=== PATIENT | male | born 1980 | race Caucasian/White ===

== ENCOUNTER 2020-01-28 00:52 | Emergency (ER) | payer SELFPAY ==
[2020-01-28 01:04] VITALS: BP 148/103; PULSE 85; RESP 18; TEMP 36.4; O2SAT 99; BMI 24.3
--- NOTE | 2020-01-28 01:14 | ED_ITS ---
HPI - Eye Problem General: Chief complaint: Eye Problems Stated complaint: hurts to open eyes Time Seen by Provider: 01/28/20 01:04 History of Present Illness: HPI Narrative: Patient is a 39-year-old male who comes to the ED with bilateral eye pain. 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 He now is having intense eye pain and it hurts to open his eyes. Denies any foreign body. Associated symptoms: Denies fever(s), headache(s), nausea, neck pain or vomiting Review of Systems Const: Denies: fever, chills or fatigue Eyes: Reports: blurry vision, eye discomfort and eye redness; Denies: change in vision ENMT: Denies: throat pain, painful swallowing, nasal discharge or nasal congestion Card: Denies: chest pain, palpitations, edema, swelling of feet/ankles, shortness of breath on exertion or shortness of breath when lying down Resp: Denies: shortness of breath, productive cough or non-productive cough GI: Denies: abdominal pain, nausea, vomiting, diarrhea, constipation or blood in stool : Denies: flank pain, difficulty urinating, painful urination or blood in urine Musc: Denies: neck pain, back pain or extremity swelling Skin/Breast: Denies: rash or new lesion Neuro: Denies: headache, numbness in extremities or weakness in extremities PFSH ED PFSH: Social History Smoking and tobacco status: former smoker Physical Exam Narrative: EXAM NARRATIVE: Patient is a 39-year-old male who appears in some discomfort when I entered the room. Const: COMMON NORMALS: oriented x3 and alert GENERAL APPEARANCE: cooperative HENMT: COMMON NORMALS: normocephalic HEAD & SCALP: normocephalic MOUTH: oral and palatal mucosa normal THROAT: posterior oropharynx normal and uvula midline Eye: COMMON NORMALS: PERRL and EOMs intact bilaterally EYELID: eyelids normal CONJUNCTIVA: Yes conjunctiva abnormal positive bilateral conjunctival injection diffuse SCLERA: sclerae normal CORNEA: Yes corneas normal and fluorescein used (no abrasions or scratches seen.) PUPIL: Yes PERRL SLIT LAMP EXAM: Yes slit lamp exam performed with fluorescein and Yes conjunctiva/sclera Conjunctiva/sclera details: diffuse conjunctiva injection OTHER: No foreign body seen on exam of both eyes. Neck/C-Spine: COMMON NORMALS: supple GENERAL: Yes normal visual inspection Resp: COMMON NORMALS: normal respiratory effort, no retractions, no use of accessory muscles and clear to auscultation bilaterally AUSCULTATION: clear to auscultation bilaterally Cardio: COMMON NORMALS: regular rate, regular rhythm, S1 normal heart sound, S2 normal heart sound, no gallops, no clicks, no murmurs and peripheral pulses 2+ throughout RATE: regular rate RHYTHM: regular rhythm HEART SOUNDS: S1 normal and S2 normal PERIPHERAL PULSES: pulses 2+ throughout GI: COMMON NORMALS: normal to inspection, nondistended, normoactive bowel sounds, soft to palpation, non-tender and no masses PALPATION: Yes soft : COMMON NORMALS: Yes no CVA tenderness BLADDER/KIDNEY EXAM: Yes no CVA tenderness Back/Pelvis: COMMON NORMALS: no CVA tenderness Extremity: COMMON NORMALS: normal to inspection Neuro: COMMON NORMALS: oriented x3 and moves all extremities SENSORIUM/ORIENTATION: Yes alert Skin: COMMON NORMALS: no rashes or lesions noted GENERAL SKIN EXAM: no rashes or lesions noted and dry skin Course Vital Signs: Vital signs: Vital Signs Temperature 97.6 F 01/28/20 01:04 Pulse Rate 85 01/28/20 01:04 Respiratory Rate 16 01/28/20 02:31 Blood Pressure 150/100 01/28/20 02:31 Pulse Oximetry 99 01/28/20 01:04 MDM - Eye Problem MDM Narrative: Medical decision making narrative: Patient is a 39-year-old male who comes into the ED with bilateral eye pain. 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 Patient diagnosed with Welders flash in both eyes and given a prescription for erythromycin eye ointment. Patient was told to return to the ED immediately within 2 days if symptoms do not improve. I stressed with patient that he needs to be reevaluated and seen by either PCP or return to the ED no matter what within 3 days. He was told to rest advised him to take ibuprofen for pain. Patient understood and agreed with plan. Discharge Plan Discharge Patient Disposition: Home, Self-Care Clinical Impression: Welders' flash Qualifiers: Laterality: bilateral Qualified Code(s): H16.133 - Photokeratitis, bilateral Condition: Stable Prescriptions: New erythromycin 5 mg/gram (0.5 %) ointment 1 applic ophthalmic (eye) Q6H Qty: 3.5 RF: 0 Discharge Orders: Discharge Order (Routine); Ordered 01/28/20 Ordered By: Edwin Weiss Discharge Diet: Regular Discharge Activity: Limit activity as instructed Patient Instructions: Erythromycin (Into the eye), Corneal Flash [place] (ED) Activity Restrictions/Additional Instructions: Follow-up with your PCP or return to ED in 2 to 3 days for reevaluation. Use topical antibiotic eye ointment as prescribed. Keep eyes closed and wear eye patches if possible to allow for eyes to rest and heal for the next 2-3 days. If after 2 days of using eye ointment and you do not feel any improvement return to ED for reevaluation immediately. Ibuprofen or Tylenol as needed for pain. Discharge Date/Time: 01/28/20 02:32 Coding Level of Care Code ED Packaging Materials Inspector for April Fwleigh Exam Comprehensive
[2020-01-28] MEDS: eye irrigation 30 mL Btl EYE-BOTH (01:54)
[2020-01-28] MEDS: HYDROcodone-acetaminophen 7.5-325 mg Tablet 1 TAB PO ×2 (01:54→02:28)
[2020-01-28] MEDS: erythromycin Op Oint 1 gm 1 APPLIC EYE-BOTH (01:54)
[2020-01-28] MEDS: fluorescein 1 mg Strip EYE-BOTH (01:54)
[2020-01-28] MEDS: tetracaine 0.5% Op Soln 4 mL Btl 1 DROP EYE-BOTH (01:56)
[2020-01-28 02:31] VITALS: BP 150/100; RESP 16
== END 2020-01-28 02:32 | disposition home or self-care (01) ==
PROVIDERS: Emergency Provider Physician Assistant
DX: H16.133 Photokeratitis, bilateral (principal); W89.8XXA Exposure to other man-made visible and ultraviolet light, initial encounter; Z87.891 Personal history of nicotine dependence
CPT/HCPCS: 12345; 99281; 99283

== ENCOUNTER 2020-06-22 22:22 | Emergency (ER) | payer SELFPAY ==
[2020-06-22 22:24] VITALS: BP 160/105; PULSE 87; RESP 18; TEMP 36.3; O2SAT 100; BMI 25.0
[2020-06-22 22:27] VITALS: RESP 18
--- NOTE | 2020-06-22 22:31 | XR_ITS ---
WS: [id number] RIGHT HAND: 3 VIEW(S) TECHNIQUE: PA, oblique and lateral. HISTORY: right hand injury COMPARISON: 04/18/2006 Suspect nondisplaced fracture. Cortical irregularity involving the terminal tuft of the third finger is probably not related to the recent trauma. Extensive soft tissue injury and edema surrounding the second finger. No displacement. No foreign body. XR/XR hand RT min 3V* [id number] IMPRESSION: 1. Nondisplaced fracture terminal tuft second finger. 2. Soft tissue edema surrounding the second finger.
--- NOTE | 2020-06-22 22:32 | W.ED.EXTPRO ---
HPI - Extremity Problem General: Chief complaint: Wound/Laceration Stated complaint: finger lac Time Seen by Provider: 06/22/20 22:30 History of Present Illness: HPI Narrative: Patient is a 39-year-old male who comes to the ED with finger laceration. Injury occurred just prior to arrival. Patient said while he was building a tree house a panel fell down and struck patient's right index finger causing a laceration. Patient says he has not had an updated tetanus shot. Associated symptoms: Deny chest pain, fever(s) or rash Review of Systems Const: Denies: fever(s), chills or fatigue Eyes: Denies: change in vision or eye discomfort ENMT: Denies: throat pain, odynophagia, nasal discharge or nasal congestion Card: Denies: chest pain, palpitations, edema, swelling of feet/ankles, dyspnea on exertion or orthopnea Resp: Denies: dyspnea, productive cough or non-productive cough GI: Denies: abdominal pain, nausea, vomiting, diarrhea, constipation or hematochezia : Denies: flank pain, difficulty urinating, dysuria or hematuria Musc: Denies: neck pain, back pain or extremity swelling Skin/Breast: Reports: new lesions (laceration on left index finger); Denies: rash Neuro: Denies: headache(s), numbness in extremities or weakness in extremities PFSH ED PFSH: Social History Smoking and tobacco status: former smoker Physical Exam Const: COMMON NORMALS: patient oriented x3, healthy appearing and alert GENERAL APPEARANCE: cooperative and comfortable HENMT: COMMON NORMALS: normocephalic HEAD & SCALP: normocephalic MOUTH: Normal oral and palatal mucosa present THROAT: posterior oropharynx normal and uvula midline Neck/C-Spine: COMMON NORMALS: supple GENERAL: Yes normal visual inspection Resp: COMMON NORMALS: normal respiratory effort, No retractions, No use of accessory muscles and clear to auscultation bilaterally AUSCULTATION: clear to auscultation bilaterally Cardio: COMMON NORMALS: regular rate, regular rhythm, S1 normal heart sound present, S2 normal heart sound present, No gallops present (Cardio), No clicks present (Cardio), No murmurs present (Cardio) and Peripheral pulses 2+ throughout RATE: regular rate RHYTHM: regular rhythm HEART SOUNDS: S1 normal heart sound present and S2 normal heart sound present PERIPHERAL PULSES: Peripheral pulses 2+ throughout GI: COMMON NORMALS: Normal to inspection, nondistended, normoactive bowel sounds present, Soft to palpation, non-tender and no masses PALPATION: Yes Soft to palpation : COMMON NORMALS: Yes no CVA tenderness BLADDER/KIDNEY EXAM: Yes no CVA tenderness Back/Pelvis: COMMON NORMALS: no CVA tenderness Extremity: NARRATIVE EXTREMITY EXAM: Patient has a superficial 2 cm laceration on right index finger. Neuro: COMMON NORMALS: patient oriented x3 and moves all extremities SENSORIUM/ORIENTATION: Yes alert Skin: TRAUMA: laceration linear (Superficial 2 cm linear laceration to right index finger.), superficial, motor nerve function intact and sensation intact; not actively bleeding, no pulsatile bleeding, no foreign bodies present and not contaminated Procedures Laceration Laceration 1: Site: hand Side (If applicable): right Size (cm): 2 Description: linear and clean Depth: simple, single layer Local Anesthetic: lidocaine 2% Amount of anesthesia used (mL): 10 Pre-repair: irrigated extensively (With normal saline ) Skin layer closed with: nylon Size (cm): 4-0 Number of sutures: 11 Technique: simple, interrupted Nerve Block Nerve Block 1: Time out performed: Yes Local Anesthetic: lidocaine 2% Amount of anesthesia used (mL): 10 Side: left Nerve Blocks: digital (2 digit) Procedure Successful: Yes Patient Tolerated Procedure: well Complications: none Course Vital Signs: Vital signs: Vital Signs Temperature 97.3 F L 06/22/20 22:24 Pulse Rate 87 06/22/20 22:24 Respiratory Rate 18 06/22/20 22:27 Blood Pressure 160/105 06/22/20 22:24 Pulse Oximetry 100 06/22/20 22:24 MDM - Extremity (Nontraumatic) MDM Narrative: Medical decision making narrative: Patient is a 39-year-old male comes the ED with a laceration to right index finger. X-ray showed no acute fractures or findings. Digital block was performed and 11 sutures were placed to close laceration. Patient was put on cephalexin and told how to care for sutures. Have sutures removed in 10 days. Patient understood and agree with plan. Imaging Data^: Xray Ortho: Attestation: I personally reviewed and interpreted this imaging study as follows: My impression: Right hand x-ray showed no acute fractures or findings. Discharge Plan Discharge Patient Disposition: Home Clinical Impression: Laceration Condition: Stable Prescriptions: New cephalexin 500 mg capsule 500 mg PO TID 5 Days Qty: 15 RF: 0 No Action erythromycin 5 mg/gram (0.5 %) ointment 1 applic ophthalmic (eye) Q6H Qty: 3.5 RF: 0 Discharge Orders: Discharge Order (Routine); Ordered 06/23/20 Ordered By: Edwin Weiss Discharge Diet: Regular Discharge Activity: Limit activity as instructed Patient Instructions: Suture Care (ED), Finger Laceration (ED) Activity Restrictions/Additional Instructions: Take full course of antibiotics as prescribed. Keep laceration site clean and dry for the next 48 hours. Wear finger splint to keep finger straight to allow skin to heal. Then after that you can clean and re-bandage daily. Watch for signs of infection such as redness, warmth, increased tenderness and puslike drainage. If you see the signs of infection return to the ED, urgent care or PCP for reevaluation. call your PCP to schedule a follow-up appointment for reevaluation and suture removal in about 10 days. Continue taking all home meds. Follow discharge plans as discussed. You can return to the ED if symptoms worsen. Coding Level of Care Code ED Programmer Engineering [employer] Scientific for April Deleon Exam Comprehensive
[2020-06-22] MEDS: HYDROcodone-acetaminophen 7.5-325 mg Tablet 1 TAB PO (23:40)
[2020-06-22] MEDS: cephALEXin 500 mg Capsule PO (23:40)
[2020-06-22] MEDS: lidocaine 2% INJ 20 mL INJECTION (23:41)
[2020-06-23] MEDS: tetanus-diphtheria tox (adult) 0.5 mL SDV IM (00:33)
[2020-06-23 00:40] VITALS: BP 149/104; RESP 16
[2020-06-23 00:52] VITALS: BP 149/104; RESP 16
== END 2020-06-23 00:55 | disposition home or self-care (01) ==
PROVIDERS: Emergency Provider Physician Assistant
DX: S61.210A Laceration without foreign body of right index finger without damage to nail, initial encounter (principal); W20.8XXA Other cause of strike by thrown, projected or falling object, initial encounter; Z87.891 Personal history of nicotine dependence; Z23 Encounter for immunization
CPT/HCPCS: 12001; 12345; 29130; 73130; 90471; 90714; 99281; 99283

== ENCOUNTER 2022-09-17 17:14 | Observation (INO) | payer MEDICAID, SELFPAY ==
[2022-09-17 17:20] VITALS: BP 158/103; PULSE 78; RESP 16; TEMP 35.6; O2SAT 100; BMI 24.5
--- NOTE | 2022-09-17 17:29 | ECG_ITS ---
[facility] Test Date: 2022-09-17 Pat Name: Albert Marsh Department: Room: Gender: Male Medicare Coordinator: : 1980 Requested By: Mustapha Sanchez Order Number: [id number] Nancy MD: Jenna Palmer M.D. Measurements Intervals [place] Rate: 72 P: 80 WI: 161 QRS: 31 QRSD: 94 T: 44 QT: 436 QTc: 478 Interpretive Statements SINUS RHYTHM No previous ECG available for comparison Electronically Signed On 09-18-2022 10:57:49 ASSOCIATE GENETICS PROFESSOR by Jenna Palmer M.D. [id number]
--- NOTE | 2022-09-17 17:29 | CTR_ITS ---
PROCEDURE INFORMATION: Exam: CT Head Without Contrast Exam date and time: 09/17/2022 6:02 PM Age: 41 years old Clinical indication: Altered mental status/memory loss; Additional info: Altered mental status recent trauma TECHNIQUE: Imaging protocol: Computed tomography of the head without contrast. Radiation optimization: All CT scans at this facility use at least one of these dose optimization techniques: automated exposure control; mA and/or kV adjustment per patient size (includes targeted exams where dose is matched to clinical indication); or iterative reconstruction. COMPARISON: CT Head wo IV contrast 07/10/2014 11:23 PM RADIATION DOSE METRICS: Total DLP (mGy-cm): 1349.18 FINDINGS: Limitations: Study is somewhat limited by patient motion. Brain: Normal. No hemorrhage. Unremarkable white matter. No mass effect. Cerebral ventricles: No ventriculomegaly. Paranasal sinuses: There is some partial opacification of ethmoid air cells. Mastoid air cells: Visualized mastoid air cells are well aerated. Bones/joints: Unremarkable. No acute fracture. Soft tissues: Unremarkable. CT/CT head wo con* [id number] IMPRESSION: Mild sinus disease. No acute intracranial finding.
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
[2022-09-17 18:07] LABS: Add Urine Microscopic? NO; Charge for UA Resulting for Rev
[2022-09-17 18:10] LABS: Bilirubin Urine Neg (Negative); Blood Urine Neg (Negative); Glucose Urine UA 4+ (Normal); Ketones Urine 1+ (Negative); Leukocyte Esterase Urine Negative (Negative); Nitrate Urine Negative (Negative); Protein Urine Neg (Negative); Specific Gravity, Urine 1.005 (1.005-1.030); Urine Appearance Clear (CLEAR); Urine Color Yellow (Yellow); Urobilinogen Urine Neg (Negative); pH Urine 6 (5-7)
[2022-09-17 18:15] LABS: Basophils % 0.4 %; Eosinophils % 0.7 %; Hematocrit 52.1 % (42.0-52.0); Hemoglobin 15.3 g/dL (11.7-16.6); Lymphocytes # 0.8 10^3/uL (0.8-4.8); Lymphocytes % 29.6 %; Mean Corpuscular HGB Conc 29.4 g/dL (30.0-36.0); Mean Corpuscular Hemoglobin 28.5 pg (28.0-34.0); Mean Corpuscular Volume 97.2 fl (80-94); Mean Platelet Volume 11.3 fL (7.4-10.4); Monocytes # 0.2 10^3/uL (0.2-0.9); Monocytes % 8.7 %; Neutrophils # 1.66 10^3/uL (1.8-7.7); Neutrophils % 59.9 %; Nucleated Red Blood Cells % 0 %; Platelet Count 183 10^3/cmm (130-400); Red Blood Count 5.36 10^6/uL (4.1-5.3); White Blood Count 2.8 10^3/uL (4.0-10.0)
[2022-09-17 18:18] LABS: Amphetamines Screen Urine Positive (Negative); Barbiturates Screen Urine Negative (Negative); Benzodiazepines Screen Urine Negative (Negative); Cocaine Screen Urine Negative (Negative); Opiate Screen Urine Negative (Negative); PCP Screen Urine Negative (Negative); THC Screen Urine Negative (Negative)
[2022-09-17 18:31] LABS: Alanine Aminotransferase 20 U/L (0-41); Albumin Level 4.3 g/dL (3.5-5.2); Alkaline Phosphatase 232 U/L (40-130); Anion Gap 17.2 (5-19); Aspartate Amino Transferase 17 U/L (0-40); Blood Urea Nitrogen 30 mg/dL (6-20); Calcium 9.7 mg/dL (8.5-10.5); Carbon Dioxide 28 mmol/L (22-29); Chloride 83 mmol/L (98-107); Glomerular Filtration Rate 66.7 mL/min (90-130); Potassium 5.2 mmol/L (3.5-5.1); Sodium 123 mmol/L (136-145); Total Protein 8.3 g/dL (6.6-8.7)
[2022-09-17 18:35] LABS: Acetaminophen < 5.0 ug/mL (10-30); Alcohol Level < 10 mg/dL (0-10); Salicylate < 0.3 mg/dL (3-10)
[2022-09-17 18:36] LABS: Ketone (Acetest) Serum Negative (Negative)
[2022-09-17 18:39] LABS: Osmolality Calculated 338 mOsm/kg (285-295)
[2022-09-17 18:41] LABS: Glucose 1463 mg/dL (65-115)
[2022-09-17 19:30] VITALS: BP 165/107; PULSE 90; RESP 14; O2SAT 94
[2022-09-17] MEDS: metformin 500 mg Tablet 1000 MG PO (19:38)
[2022-09-17] MEDS: sodium chloride 0.9% 1,000 ML 999 ML IV ×2 (19:48→20:13)
[2022-09-17] MEDS: insulin regular-human 100 units/1 mL 12 UNIT IVP (19:49)
[2022-09-17 19:57] LABS: HIV 1 & 2 Antibody Non-Reactive (Non-Reactiv); HIV 1 & 2 Antigen Non-Reactive (Non-Reactiv)
[2022-09-17 20:36] LABS: Glucose Point of Care > 600 mg/dL (70-110)
[2022-09-17] MEDS: insulin regular-human 250 UNIT in sodium chloride 0.9% 250 ML 28.48 UNIT IV (20:51)
[2022-09-17 21:00] VITALS: BP 162/97; PULSE 82; RESP 14; O2SAT 96
[2022-09-17 21:21] LABS: Estmated Average Glucose 260; Hemoglobin A1C 10.7 % (4.0-6.0)
--- NOTE | 2022-09-17 21:22 | PM.HP ---
Providers/Chief Complaint Admitting Physician: Liss Wilson MD Chief Complaint: abd pain History of Present Illness Albert Marsh is a 41 year old male without significant past medical history with chief complaint of blurry vision. Patient stating that he start experiencing polyphagia, polyuria, dry mucous membranes, weakness, fatigue and lethargy for last few weeks today he decided to come to the hospital because of worsening of blurry vision. He does not have any history of diabetes, CVA [place] CHF. Patient is endorsing flulike symptoms for last couple of days he has been noticing some fever, sneezing and dry cough. He is not vaccinated for COVID-19 and he does not want to get vaccine as well. Drug screen positive for methamphetamine COVID PCR requested [place] IV fluids to be given patient is getting admitted to the ICU patient was elected to get admitted however later agreed Review of Systems Const: Reports: fever(s) and chills Eyes: Denies: change in vision ENMT: Denies: throat pain Card: Denies: chest pain Resp: Denies: dyspnea GI: Denies: abdominal pain : Denies: flank pain Musc: Denies: neck pain Skin/Breast: Denies: rash Neuro: Reports: headache(s) Psych: Denies: anxiety Endo: Denies: polyuria [place]/Lymph: Denies: easy bruising All/Imm: Denies: urticaria Medications/Allergies Home Medications Medication Instructions Recorded Confirmed Last Taken Type albuterol sulfate 90 mcg/actuation 2 puff inhalation Q6H PRN 08/29/20 08/29/20 Unknown Rx aerosol inhaler shortness of breath or wheezing #8.5 grams azithromycin 250 mg tablet See Rx Instructions PO .COMPLEX #6 08/29/20 08/29/20 Unknown Rx tabs prednisone 10 mg tablet 30 mg PO DAILY 5 days #15 tabs 08/29/20 08/29/20 Unknown Rx Allergies Allergy/AdvReac Type Severity Reaction Status Date / Time No Known Allergies Allergy Verified 09/17/22 19:37 PFSH Acute PFSH: Medical History No pertinent past medical history Surgical History No pertinent past surgical history Social History Smoking and tobacco status: former smoker Alcohol intake: current Substance/Drug Use: current Substance/Drug use frequency: Special occassions/opportunity only Substance/Drug use type: Methamphetamine Vitals/I&O/Wt Last Vital Signs Temp 96.0 F L 09/17/22 17:20 Pulse 82 09/17/22 21:00 Resp 14 09/17/22 21:00 BP 162/97 09/17/22 21:00 Pulse Ox 96 09/17/22 21:00 O2 Del Method 09/17/22 21:00 09/17/22 09/17/22 09/17/22 06:59 14:59 22:59 Intake Total 1416.25 / 1416.25 Balance 1416.25 / 1416.25 Weight last 48 hrs Weight 71.214 kg Physical Exam Narrative: Patient is awake and alert Dry mucous membranes Euvolemic Awake and alert Nonfocal neuro exam S1, S2 Abdomen soft Anxious. Does not make eye contact Dry cough Sneezing a lot Doing well on room air Data 09/17/22 18:00 09/17/22 18:00 A&P Assessment and plan (1) Acute hyperglycemia: (2) Acute dehydration: Plan Hyperglycemia without ketosis No signs of DKA No signs of acidosis Suffering from cold symptoms requested COVID PCR Start patient on insulin drip after liberal IV fluid hydration Stop insulin drip once blood glucose below 200 mg/dL, hemoglobin A1c is 10 He will need Lantus 20 units along schedule Premeal short acting insulin Add metformin at the time of discharge 1000 mg daily Have him follow-up with Dr. Serrato outpatient Patient has quit smoking in the past N.p.o. for now start consistent carb diet once blood glucose below 200 Full code DVT prophylaxis on board Hyponatremia is secondary to hyperglycemia His potassium will get better with use of IV insulin Requested TSH, drug screen positive for methamphetamine Attestations Medical Necessity Statement*: Anticipating discharge within 48 hours need insulin for hyperglycemia Time Spent in Patient Care: 40 Coding Level of Care Code Acute Entertainment Dancer for April Deleon Diagnoses Acute hyperglycemia R73.9 Acute dehydration E86.0
[2022-09-17 21:25] LABS: Hepatitis A Antibody IgM Non-Reactive (Nonreactive); Hepatitis B Core IgM Non-Reactive (Nonreactive); Hepatitis B Surface Antigen Non-Reactive (Nonreactive); Hepatitis C Virus Antibody Non-Reactive (Nonreactive)
[2022-09-17 21:43] LABS: Glucose Point of Care > 600 mg/dL (70-110)
[2022-09-17 22:00] VITALS: BP 162/97; PULSE 82; RESP 14; O2SAT 96
[2022-09-17 22:08] VITALS: BMI 24.3
[2022-09-17 22:25] LABS: Procalcitonin 0.17 ng/mL (0-0.5)
[2022-09-17] MEDS: lactated ringers 1,000 ML 999 ML IV (22:47)
[2022-09-17] MEDS: sodium chlor 0.9% + KCl 20 mEq 20 MEQ/1,000 ML BAG 100 MEQ IV (22:47)
[2022-09-17 22:53] LABS: Adenovirus Not Detected (NOT DETECT); Chlamydia Pneumoniae Not Detected (NOT DETECT); Coronavirus 229E,HKU1,NL63,OC4 Not Detected (NOT DETECT); Human Metapneumovirus Not Detected (NOT DETECT); Human Rhinovirus/Enterovirus Not Detected (NOT DETECT); Influenza A Detected (NOT DETECT); Influenza A H1 Not Detected (NOT DETECT); Influenza A H1-2009 Detected (NOT DETECT); Influenza A H3 Not Detected (NOT DETECT); Influenza B Not Detected (NOT DETECT); Mycoplasma Pneumoniae Not Detected (NOT DETECT); Parainfluenza Virus Type 1 Not Detected (NOT DETECT); Parainfluenza Virus Type 2 Not Detected (NOT DETECT); Parainfluenza Virus Type 3 Not Detected (NOT DETECT); Parainfluenza Virus Type 4 Not Detected (NOT DETECT); Respiratory Syncytial Virus A Not Detected (NOT DETECT); Respiratory Syncytial Virus B Not Detected (NOT DETECT); SARS-COV-2 Not Detected (NOT DETECT)
[2022-09-17 22:54] LABS: Glucose 495 mg/dL (65-115); Thyroid Stimulating Hormone 0.78 uIU/mL (0.27-4.20)
[2022-09-17 23:31] LABS: Glucose Point of Care 357 mg/dL (70-110)
[2022-09-18] MEDS: sodium chloride 0.9% 1,000 ML 100 ML IV ×2 (00:02→11:14)
[2022-09-18] MEDS: insulin glargine 100 units/1 mL 20 UNIT SUBCUT (00:02)
[2022-09-18 00:26] LABS: Anion Gap 14.2 (5-19); Blood Urea Nitrogen 21 mg/dL (6-20); Calcium 9.1 mg/dL (8.5-10.5); Carbon Dioxide 23 mmol/L (22-29); Chloride 105 mmol/L (98-107); Glomerular Filtration Rate 124.3 mL/min (90-130); Glucose 185 mg/dL (65-115); Osmolality Calculated 296 mOsm/kg (285-295); Potassium 3.2 mmol/L (3.5-5.1); Sodium 139 mmol/L (136-145)
[2022-09-18 00:57] LABS: Glucose Point of Care 205 mg/dL (70-110)
[2022-09-18] MEDS: insulin lispro 100 unit/1 mL 6 UNIT SUBCUT (01:01)
[2022-09-18] MEDS: potassium chloride ER 20 mEq Tablet 40 MEQ PO (01:01)
[2022-09-18 01:48] VITALS: PULSE 83; RESP 16; O2SAT 96
[2022-09-18 03:29] LABS: Glucose Point of Care 225 mg/dL (70-110)
[2022-09-18 04:53] LABS: Basophils % 0.5 %; Eosinophils # 0.1 10^3/uL (0.0-0.8); Eosinophils % 3.3 %; Hematocrit 37.9 % (42.0-52.0); Hemoglobin 13.1 g/dL (11.7-16.6); Lymphocytes # 2.1 10^3/uL (0.8-4.8); Lymphocytes % 49.1 %; Mean Corpuscular HGB Conc 34.6 g/dL (30.0-36.0); Mean Corpuscular Hemoglobin 28.4 pg (28.0-34.0); Mean Platelet Volume 10.9 fL (7.4-10.4); Monocytes # 0.4 10^3/uL (0.2-0.9); Monocytes % 9.4 %; Neutrophils # 1.59 10^3/uL (1.8-7.7); Neutrophils % 37.5 %; Nucleated Red Blood Cells % 0 %; Platelet Count 164 10^3/cmm (130-400); Red Blood Count 4.62 10^6/uL (4.1-5.3); Red Cell Distribution Width 11.8 % (12.1-15.1); White Blood Count 4.2 10^3/uL (4.0-10.0)
[2022-09-18 05:16] LABS: Anion Gap 10.6 (5-19); Blood Urea Nitrogen 17 mg/dL (6-20); C Reactive Protein 15.2 mg/L (0.0-4.9); Calcium 9.2 mg/dL (8.5-10.5); Carbon Dioxide 26 mmol/L (22-29); Chloride 107 mmol/L (98-107); Glomerular Filtration Rate 124.3 mL/min (90-130); Glucose 203 mg/dL (65-115); Magnesium 1.9 mg/dL (1.7-2.3); Osmolality Calculated 297 mOsm/kg (285-295); Potassium 3.6 mmol/L (3.5-5.1); Sodium 140 mmol/L (136-145)
[2022-09-18] MEDS: oseltamivir phosphate 75 mg Capsule PO (08:17)
[2022-09-18 08:23] LABS: Anion Gap 13.8 (5-19); Blood Urea Nitrogen 16 mg/dL (6-20); Calcium 8.9 mg/dL (8.5-10.5); Carbon Dioxide 26 mmol/L (22-29); Chloride 107 mmol/L (98-107); Glomerular Filtration Rate 124.3 mL/min (90-130); Glucose 124 mg/dL (65-115); Osmolality Calculated 299 mOsm/kg (285-295); Potassium 3.8 mmol/L (3.5-5.1); Sodium 143 mmol/L (136-145)
[2022-09-18 08:23] LABS: Glucose Point of Care 117 mg/dL (70-110)
[2022-09-18 11:18] VITALS: PULSE 80; RESP 18; O2SAT 94
--- NOTE | 2022-09-18 11:33 | P.DS_ITS ---
Discharge Providers Date of Admission: 09/17/22 21:14 Date of Discharge: September 18, 2022 Attending Provider at Admission: Liss Wilson MD Attending Provider at Discharge: Nicole Dunlap MD Diagnoses at Discharge Discharge Diagnosis (1) Acute hyperglycemia: Status: Acute (2) Acute dehydration: Status: Resolved Reason for Visit Reason for Visit: abd pain Brief History: Albert Marsh is a 41 year old male without significant past medical history with chief complaint of blurry vision.? Patient stating that he start experiencing polyphagia, polyuria, dry mucous membranes, weakness, fatigue and lethargy for last few weeks today he decided to come to the hospital because of worsening of blurry vision.? He does not have any history of diabetes, CVA [place] CHF.? Patient is endorsing flulike symptoms for last couple of days he has been noticing some fever, sneezing and dry cough. He is not vaccinated for COVID-19 and he does not want to get vaccine as well. Drug screen positive for methamphetamine COVID PCR requested [place] IV fluids to be given patient is getting admitted to the ICU patient was elected to get admitted however later agreed Hospital Course Hospital Course Admitted for blood sugar of 1400. Placed on insulin drip. Discharged home on Lantus 20 units daily along with metformin. He was given endocrinology follow- up at discharge. 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 He was given instructions for diabetic diet and counseled and given written instructions for blood sugar management. Blood glucose monitoring was also prescribed. Physical Exam Narrative: Patient is awake and alert Euvolemic Awake and alert Nonfocal neuro exam S1, S2 Abdomen soft Doing well on room air Discharge Data Studies Completed and Pending Completed Studies During Hospitalization Category Date Time Status CT head wo con* [id number] Stat Cat Scan 09/17/22 17:29 Completed Pending at discharge Category Date Time Status Basic Metabolic Panel Q4H Lab 09/18/22 12:00 Ordered Radiology Impressions Head CT 09/17/22 17:29 IMPRESSION: Mild sinus disease. No acute intracranial finding. Laboratory Results WBC 4.2 10^3/uL (4.0-10.0) 09/18/22 04:19 RBC 4.62 10^6/uL (4.1-5.3) 09/18/22 04:19 Hgb 13.1 g/dL (11.7-16.6) 09/18/22 04:19 Hct 37.9 % (42.0-52.0) L 09/18/22 04:19 MCV 82.0 fl (80-94) D 09/18/22 04:19 MCH 28.4 pg (28.0-34.0) 09/18/22 04:19 MCHC 34.6 g/dL (30.0-36.0) D 09/18/22 04:19 RDW 11.8 % (12.1-15.1) L 09/18/22 04:19 Plt Count 164 10^3/cmm (130-400) 09/18/22 04:19 MPV 10.9 fL (7.4-10.4) H 09/18/22 04:19 Neut % (Auto) 37.5 % 09/18/22 04:19 Lymph % (Auto) 49.1 % 09/18/22 04:19 [place] % (Auto) 9.4 % 09/18/22 04:19 Eos % (Auto) 3.3 % 09/18/22 04:19 Baso % (Auto) 0.5 % 09/18/22 04:19 Neut # (Auto) 1.59 10^3/uL (1.8-7.7) L 09/18/22 04:19 Lymph # (Auto) 2.1 10^3/uL (0.8-4.8) 09/18/22 04:19 [place] # (Auto) 0.4 10^3/uL (0.2-0.9) 09/18/22 04:19 Eos # (Auto) 0.1 10^3/uL (0.0-0.8) 09/18/22 04:19 Baso # (Auto) 0.0 10^3/uL (0.0-0.1) 09/18/22 04:19 Nucleated RBC % (auto) 0 % 09/18/22 04:19 Nucleated RBCs # 0.0 /100WBC 09/18/22 04:19 Sodium 143 mmol/L (136-145) 09/18/22 07:55 Potassium 3.8 mmol/L (3.5-5.1) 09/18/22 07:55 Chloride 107 mmol/L (98-107) 09/18/22 07:55 Carbon Dioxide 26 mmol/L (22-29) 09/18/22 07:55 Anion Gap 13.8 (5-19) 09/18/22 07:55 BUN 16 mg/dL (6-20) 09/18/22 07:55 Creatinine 0.7 mg/dL (0.7-1.2) 09/18/22 07:55 GFR Calculation 124.3 mL/min (90-130) 09/18/22 07:55 Glucose 124 mg/dL (65-115) H 09/18/22 07:55 POC Glucose 117 mg/dL (70-110) H 09/18/22 08:13 Estimat Average Glucose 260 09/17/22 18:00 Hemoglobin A1c 10.7 % (4.0-6.0) H 09/17/22 18:00 Calculated Osmolality 299 mOsm/kg (285-295) H 09/18/22 07:55 Calcium 8.9 mg/dL (8.5-10.5) 09/18/22 07:55 Phosphorus 3.0 mg/dL (2.5-4.5) 09/18/22 04:19 Magnesium 1.9 mg/dL (1.7-2.3) 09/18/22 04:19 Total Bilirubin 1.0 mg/dL (0.15-1.2) 09/17/22 18:00 AST 17 U/L (0-40) 09/17/22 18:00 ALT 20 U/L (0-41) 09/17/22 18:00 Alkaline Phosphatase 232 U/L (40-130) H 09/17/22 18:00 C-Reactive Protein 15.2 mg/L (0.0-4.9) H 09/18/22 04:19 Total Protein 8.3 g/dL (6.6-8.7) 09/17/22 18:00 Albumin 4.3 g/dL (3.5-5.2) 09/17/22 18:00 Globulin 4.0 g/dL (1.3-4.6) 09/17/22 18:00 Procalcitonin 0.17 ng/mL (0-0.5) 09/17/22 18:00 TSH 0.78 uIU/mL (0.27-4.20) 09/17/22 22:15 Urine Color Yellow (Yellow) 09/17/22 17:33 Urine Appearance Clear (CLEAR) 09/17/22 17:33 Urine pH 6 (5-7) 09/17/22 17:33 Ur Specific [place] 1.005 (1.005-1.030) 09/17/22 17:33 Urine Protein Neg (Negative) 09/17/22 17:33 Urine Glucose (UA) 4+ (Normal) H 09/17/22 17:33 Urine Ketones 1+ (Negative) H 09/17/22 17:33 Urine Blood Neg (Negative) 09/17/22 17:33 Urine Nitrate Negative (Negative) 09/17/22 17:33 Urine Bilirubin Neg (Negative) 09/17/22 17:33 Urine Urobilinogen Neg mg/dL (Negative) 09/17/22 17:33 Ur Leukocyte Esterase Negative (Negative) 09/17/22 17:33 Nasal Influ A H1 2008 PCR Detected (NOT DETECT) A 09/17/22 21:00 Salicylates < 0.3 mg/dL (3-10) L 09/17/22 18:00 Urine Opiates Screen Negative ng/mL (Negative) 09/17/22 17:33 Acetaminophen < 5.0 ug/mL (10-30) L 09/17/22 18:00 Ur Barbiturates Screen Negative ng/mL (Negative) 09/17/22 17:33 Ur Phencyclidine Scrn Negative ng/mL (Negative) 09/17/22 17:33 Ur Amphetamines Screen Positive ng/mL (Negative) H 09/17/22 17:33 U Benzodiazepines Scrn Negative ng/mL (Negative) 09/17/22 17:33 Urine Cocaine Screen Negative ng/mL (Negative) 09/17/22 17:33 U Marijuana (THC) Screen Negative ng/mL (Negative) 09/17/22 17:33 Ethyl Alcohol < 10 mg/dL (0-10) 09/17/22 18:00 Serum Ketones Negative (Negative) 09/17/22 18:00 Adenovirus (PCR) Not detected (NOT DETECT) 09/17/22 21:00 C. pneumoniae DNA (PCR) Not detected (NOT DETECT) 09/17/22 21:00 Coronavirus 229E (PCR) Not detected (NOT DETECT) 09/17/22 21:00 Hepatitis A IgM Ab Non-reactive (Nonreactive) 09/17/22 18:00 Hep Bs Antigen Non-reactive (Nonreactive) 09/17/22 18:00 Hep B Core IgM Ab Non-reactive (Nonreactive) 09/17/22 18:00 Hepatitis C Antibody Non-reactive (Nonreactive) 09/17/22 18:00 HIV 1&2 Ab & HIV 1 Ag Non-reactive (Non-Reactiv) 09/17/22 18:00 HIV 1&2 Antibody Non-reactive (Non-Reactiv) 09/17/22 18:00 Human Metapneumovir PCR Not detected (NOT DETECT) 09/17/22 21:00 Influenza A (H1) PCR Not detected (NOT DETECT) 09/17/22 21:00 Influenza A (H3) PCR Not detected (NOT DETECT) 09/17/22 21:00 Influenza Type A (PCR) Detected (NOT DETECT) A 09/17/22 21:00 Influenza Type B (PCR) Not detected (NOT DETECT) 09/17/22 21:00 M. pneumoniae (PCR) Not detected (NOT DETECT) 09/17/22 21:00 Parainfluenza 1 (PCR) Not detected (NOT DETECT) 09/17/22 21:00 Parainfluenza 2 (PCR) Not detected (NOT DETECT) 09/17/22 21:00 Parainfluenza 3 (PCR) Not detected (NOT DETECT) 09/17/22 21:00 Parainfluenza 4 (PCR) Not detected (NOT DETECT) 09/17/22 21:00 RSV Type A (PCR) Not detected (NOT DETECT) 09/17/22 21:00 RSV Type B (PCR) Not detected (NOT DETECT) 09/17/22 21:00 Entero/Rhino (PCR) Not detected (NOT DETECT) 09/17/22 21:00 SARS-CoV-2 (PCR) Not detected (NOT DETECT) 09/17/22 21:00 Vitals Last Vital Signs Temp 96.0 F L 09/17/22 17:20 Pulse 80 09/18/22 11:18 Resp 18 09/18/22 11:18 BP 162/97 09/17/22 22:00 Pulse Ox 94 09/18/22 11:18 O2 Del Method 09/18/22 11:18 Discharge Plan Discharge Patient Disposition: Home Condition: Stable Prescriptions: New (DME) Blood Glucose Monitoring Kit See Rx Instructions .Route Qty: 1 0RF Rx Instructions: As directed (DME) Blood Glucose Test Strip See Rx Instructions .Route Qty: 50 0RF Rx Instructions: As directed (DME) Lancets, Super Thin Misc See Rx Instructions .Route Qty: 100 0RF Rx Instructions: As directed metformin 500 mg tablet 500 mg PO BID Qty: 60 0RF Continued albuterol sulfate 90 mcg/actuation HFA aerosol inhaler 2 puff inhalation Q6H PRN (Reason: shortness of breath or wheezing) Qty: 8.5 0RF Discontinued azithromycin 250 mg tablet See Rx Instructions PO .COMPLEX Qty: 6 0RF Rx Instructions: take 2 tablets today (day 1), then one tablet for 4 days (days 2-5) PO prednisone 10 mg tablet 30 mg PO DAILY 5 Days Qty: 15 0RF No Action (DME) blood sugar diagnostic Strip See Rx Instructions .Route Qty: 10 2RF Rx Instructions: As directed (DME) lancets 32 gauge misc See Rx Instructions .Route Qty: 100 0RF Rx Instructions: As directed insulin aspart U-100 [Novolog U-100 Insulin aspart] 100 unit/mL solution 10 unit SUBCUT TID Qty: 27 0RF (DME) pen needle, diabetic [BD Ultra-Fine Micro Pen Needle] 32 gauge x 1/4 needle See Rx Instructions .Route Qty: 300 3RF Rx Instructions: TID (DME) Dexcom G6 Transmitter Device See Rx Instructions .ROUTE .MEDSUPPLY Qty: 1 3RF Rx Instructions: change every 3 months (DME) Dexcom G6 Nurse Leader Misc See Rx Instructions .ROUTE .MEDSUPPLY Qty: 1 3RF Rx Instructions: change every 90 days (DME) Dexcom G6 Sensor Device See Rx Instructions .ROUTE .MEDSUPPLY Qty: 9 3RF Rx Instructions: change every 10 days insulin glargine 100 unit/mL solution 20 unit SUBCUT DAILY 90 Days Qty: 18 2RF Discharge Orders: Discharge Order (Routine); Ordered 09/18/22 Ordered By: Nicole Dunlap Referrals: Marisol Serrato MD [Physician] - 7-10 days Judson Maradiaga MD [Physician] - 4-7 days (Please arrange new patient a ppointment.) Discharge Diet: Diabetic Discharge Activity: Resume usual activity Patient Instructions: Opioid Safety Activity Restrictions/Additional Instructions: You are going to be on insulin due to your newly diagnosed diabetes. The following symptoms are for hypoglycemia (having low blood sugars): Low blood sugar (hypoglycaemia) * sweating. * feeling tired. * dizziness. * feeling hungry. * tingling lips. * feeling shaky or trembling. * a fast or pounding heartbeat (palpitations) * becoming easily irritated, tearful, anxious or keys. If you experience above symptoms, please check your blood sugar and if lower than 90, please drink 4 oz of orange juice. You have been given paperwork regarding a diabetic diet. Please follow a low carbohydrate diet take 1800 to 2000-calorie diet. Aim for 45-60 g of carbohydrates per meal. Take more protein and less carbs. You are going to be on insulin now and therefore need to have proper meals daily. Do not skip meals as the insulin in your system can cause you to have low blood sugars. You have been prescribed a glucometer as well at the pharmacy along with test trips and lancets. Please check your blood sugar first thing in the morning on an empty stomach and write it down and also check your blood sugar 2 hours after every meal and write it down. Take all these numbers to your primary care doctor when you go to see him or her to see if there are any medication adjustments needed. Has also been given a referral for endocrinology. Please follow-up for management of diabetes. Please return to the ER if you experience any chest pain, shortness of breath, dizziness, sweating, abdominal pain, nausea, vomiting, diarrhea. If you develop any worsening symptoms or develop new symptoms please return to the ER. Discharge Attestations Time Spent in Discharge Care*: greater than 30 min Quality Metrics Clinical Quality Measures [ No reported AMI, CVA or VTE this stay] Coding Level of Care Code Acute Chg [facility] note Diagnoses Acute hyperglycemia R73.9 Acute dehydration E86.0
[2022-09-18 12:16] LABS: Glucose Point of Care 295 mg/dL (70-110)
[2022-09-18 12:46] LABS: Anion Gap 13.3 (5-19); Blood Urea Nitrogen 16 mg/dL (6-20); Calcium 8.7 mg/dL (8.5-10.5); Carbon Dioxide 24 mmol/L (22-29); Chloride 105 mmol/L (98-107); Glomerular Filtration Rate 124.3 mL/min (90-130); Glucose 316 mg/dL (65-115); Osmolality Calculated 299 mOsm/kg (285-295); Potassium 4.3 mmol/L (3.5-5.1); Sodium 138 mmol/L (136-145)
[2022-09-18] MEDS: insulin lispro 100 unit/1 mL SUBCUT (13:31)
--- NOTE | 2022-09-18 13:36 | PC.NURSE ---
Patient is ready for discharge. IVs removed. Upcoming appointment, diabetes, diabetes nutrition, and medication education provided. Patient signature forms signed. CUrrently waiting on patients to pick him up.
[2022-09-18 13:38] VITALS: BP 146/92; PULSE 75; RESP 16; O2SAT 95
[2022-09-30 19:29] LABS: GAD 65 IA-2 Antibody <5.4 U/mL (<5.4); GAD Insulin Autoantibody <0.4 U/mL (<0.4); Glutamic Acid Decarboxylase 65 <5 IU/mL (<5)
== END 2022-09-18 15:10 | disposition home or self-care (01) ==
LOC: ER 20:07 → ICU 09-18 06:14
PROVIDERS: Family Medicine; Admitting Provider Internal Medicine; Emergency Provider Emergency Medicine; Visit Provider Internal Medicine
DX: R73.9 Hyperglycemia, unspecified (principal); E86.0 Dehydration; Z87.891 Personal history of nicotine dependence; F15.90 Other stimulant use, unspecified, uncomplicated
CPT/HCPCS: 36415; 36416; 70450; 80048; 80053; 80074; 80306; 80307; 81003; 82009; 82947; 82962; 83036; 83735; 84100; 84145; 84443; 85025; 86140; 86337; 86341; 87486; 87581; 87633; 87806; 93005; 96365; 96366; 96367; 96372; 96375; 99285; G0378; J1815; J3480; J7030; J7050; J7120

== ENCOUNTER 2022-09-20 00:32 | Emergency (ER) | payer MEDICAID, SELFPAY ==
[2022-09-20] VITALS (9 sets, daily range): BP systolic 137–161; BP diastolic 85–96; PULSE 75–101; RESP 17–18; TEMP 36.1; O2SAT 93–96; BMI 25.8
[2022-09-20 00:50] LABS: Glucose Point of Care > 600 mg/dL (70-110)
[2022-09-20 01:22] LABS: Ketone (Acetest) Serum Negative (Negative)
--- NOTE | 2022-09-20 01:25 | ED_ITS ---
Documented by User: CHANELLE Morrow 09/20/22 04:39 HPI - General Adult General: Chief complaint: General Medical Stated complaint: high bs Time Seen by Provider: 09/20/22 00:55 Source: patient Mode of arrival: ambulatory Limitations: no limitations History of Present Illness: Patient presents emergency department today for evaluation treatment of continued vomiting, nausea, concerns for elevated blood sugars. Patient was originally seen and evaluated back on 09/17 for complaints of blurry vision, dry mucous membranes, and upper respiratory concerns. Patient was found to be severely hyperglycemic with blood sugar over 1400. Patient however was not in DKA and does not have a history of diabetes. Patient was given fluids and admitted to the ICU. Patient was discharged yesterday but they indicated they did not parts picker his medication due to the holiday. Patient presents today as he is again feeling quite poorly and has had some nausea and vomiting throughout the day. Associated symptoms: Reports nausea and vomiting Review of Systems General: Reports: 10 or more systems reviewed and unremarkable except in HPI and below GI: Reports: abdominal pain (Minimal), nausea and vomiting [facility] ED PFSH: Medical History No pertinent past medical history Surgical History No pertinent past surgical history Family History Other Hypertension Social History Smoking and tobacco status: former smoker Alcohol intake: current Physical Exam Const: COMMON NORMALS: patient oriented x3 and alert; apparent distress (Appears uncomfortable) HENMT: COMMON NORMALS: normocephalic, atraumatic, hearing grossly normal bilaterally and moist oral mucous membranes HEAD & SCALP: normocephalic and atraumatic Eye: COMMON NORMALS: Equal, round and reactive pupils present, EOMs intact bilaterally and conjunctivae normal CONJUNCTIVA: Yes conjunctivae normal PUPIL: Yes Equal, round and reactive pupils present Neck/C-Spine: COMMON NORMALS: full ROM and no JVD Lymph: LYMPHATIC: no lymphadenopathy noted Resp: COMMON NORMALS: normal respiratory effort, No retractions, No use of accessory muscles and clear to auscultation bilaterally AUSCULTATION: clear to auscultation bilaterally Cardio: COMMON NORMALS: no JVD, regular rate and regular rhythm RATE: regular rate RHYTHM: regular rhythm GI: OTHER: Patient with quiet bowel sounds. Abdomen is soft without acute tenderness on palpation. : COMMON NORMALS: Yes no CVA tenderness BLADDER/KIDNEY EXAM: Yes no CVA tenderness Back/Pelvis: COMMON NORMALS: no CVA tenderness, no thoracic nor lumbar tenderness and thoraco-lumbar ROM normal Extremity: COMMON NORMALS: normal to inspection, full ROM and capillary refill normal Neuro: COMMON NORMALS: patient oriented x3 SENSORIUM/ORIENTATION: Yes alert Psych: COMMON NORMALS: mental status grossly normal, Normal thought process present, cooperative, normal affect and activity/motor behavior normal THOUGHT PROCESS: Normal thought process present Skin: COMMON NORMALS: no rashes or lesions noted and no wounds GENERAL SKIN EXAM: no rashes or lesions noted Course Vital Signs: Vital signs: Vital Signs Temperature 97.0 F L 09/20/22 00:44 Pulse Rate 88 09/20/22 07:55 Respiratory Rate 18 09/20/22 07:55 Blood Pressure 137/92 09/20/22 07:55 Pulse Oximetry 96 09/20/22 07:55 Oxygen Delivery Me thod 09/20/22 00:44 MDM - General Adult Medical Decision Making Patient returns to the emergency department today for concerns of elevated blood glucose readings. Chart review indicated he was admitted to the ICU for significant hyperglycemia without DKA 2 days ago. When patient discharged, he did not parts picker his medication. After speaking to the hospitalist, she indicated that the staff had called ahead to the pharmacy and patient had over 2 hours to make it to the pharmacy and parts picker his medications. However, patient has not taken any thing since leaving the ICU and has continued to have some vomiting. He denies any severe abdominal pains and no recorded fevers. The supervising hospitalist the patient had while in the ICU is currently here i n the department tonight. After reviewing his charts, she indicated that there are no ICU beds currently and that since he has the appropriate medication at the pharmacy, as long as he does not have serum ketones and lab work/blood gases are otherwise stable, patient can be flushed with 4 to 5 L of fluids, treated with insulin here in the ER, and discharged home. Discussed case with Dr. Millan who is currently keeping a close eye on the patient as well. Transfer of care given to Dr. Millan at this time. Differential Diagnosis Hyperglycemia, DKA, dehydration, rhabdo, influenza A, acute organ failure Lab Data 09/20/22 00:50 Laboratory Results WBC 3.4 10^3/uL (4.0-10.0) L 09/20/22 00:50 RBC 6.13 10^6/uL (4.1-5.3) H 09/20/22 00:50 Hgb 17.3 g/dL (11.7-16.6) H 09/20/22 00:50 Hct 58.9 % (42.0-52.0) H 09/20/22 00:50 MCV 96.1 fl (80-94) H 09/20/22 00:50 MCH 28.2 pg (28.0-34.0) 09/20/22 00:50 MCHC 29.4 g/dL (30.0-36.0) L 09/20/22 00:50 RDW 12.0 % (12.1-15.1) L 09/20/22 00:50 Plt Count 142 10^3/cmm (130-400) 09/20/22 00:50 MPV 11.8 fL (7.4-10.4) H 09/20/22 00:50 Neut % (Auto) 45.3 % 09/20/22 00:50 Lymph % (Auto) 42.7 % 09/20/22 00:50 [place] % (Auto) 9.6 % 09/20/22 00:50 Eos % (Auto) 1.2 % 09/20/22 00:50 Baso % (Auto) 0.3 % 09/20/22 00:50 Neut # (Auto) 1.52 10^3/uL (1.8-7.7) L 09/20/22 00:50 Lymph # (Auto) 1.4 10^3/uL (0.8-4.8) 09/20/22 00:50 [place] # (Auto) 0.3 10^3/uL (0.2-0.9) 09/20/22 00:50 Eos # (Auto) 0.0 10^3/uL (0.0-0.8) 09/20/22 00:50 Baso # (Auto) 0.0 10^3/uL (0.0-0.1) 09/20/22 00:50 Nucleated RBC % (auto) 0 % 09/20/22 00:50 Nucleated RBCs # 0.0 /100WBC 09/20/22 00:50 Specimen Type Arterial 09/20/22 02:00 Sample Site Brachial, left 09/20/22 02:00 ABG pH 7.32 (7.35-7.45) L 09/20/22 02:00 ABG pCO2 40.4 mmHg (35-45) 09/20/22 02:00 ABG pO2 79.1 mmHg (80.0-100.0) L 09/20/22 02:00 ABG HCO3 20.6 mmol/L (22-26) L 09/20/22 02:00 ABG O2 Saturation 95.1 09/20/22 02:00 ABG Base Excess -5.2 mmol/L (-2.0-2.0) L 09/20/22 02:00 Rafael Test N/a 09/20/22 02:00 A-a O2 Gradient 2.7 mmHg (5-10) L 09/20/22 02:00 Hematocrit 48.8 % (42-52) 09/20/22 02:00 Hgb O2 Saturation 93.5 % (95-100) L 09/20/22 02:00 Carboxyhemoglobin 0.8 %THgb (0.4-20.1) 09/20/22 02:00 Methemoglobin 0.9 % (0.4-1.5) 09/20/22 02:00 Total Hemoglobin 15.9 g/dL (14-18) 09/20/22 02:00 Sodium 119.0 mmol/L (131-143) L 09/20/22 02:00 Potassium 4.5 mmol/L (3.5-5.0) 09/20/22 02:00 Glucose > 1080.0 mg/dL (70-115) H 09/20/22 02:00 Ionized Calcium 1.2 mmol/L (1.1-1.4) 09/20/22 02:00 O2 Delivery Device Not Reportable 09/20/22 02:00 FiO2 21.0 % 09/20/22 02:00 Director Of Critical Care ID Alewe 09/20/22 02:00 Sodium 136 mmol/L (136-145) D 09/20/22 06:15 Potassium 2.9 mmol/L (3.5-5.1) L D 09/20/22 06:15 Chloride 103 mmol/L (98-107) 09/20/22 06:15 Carbon Dioxide 23 mmol/L (22-29) 09/20/22 06:15 Anion Gap 12.9 (5-19) 09/20/22 06:15 BUN 15 mg/dL (6-20) 09/20/22 06:15 Creatinine 0.7 mg/dL (0.7-1.2) 09/20/22 06:15 GFR Calculation 124.3 mL/min (90-130) 09/20/22 06:15 Glucose 410 mg/dL (65-115) H 09/20/22 06:15 POC Glucose 265 mg/dL (70-110) H 09/20/22 07:13 Calculated Osmolality 300 mOsm/kg (285-295) H 09/20/22 06:15 Calcium 8.6 mg/dL (8.5-10.5) 09/20/22 06:15 Total Bilirubin 1.1 mg/dL (0.15-1.2) 09/20/22 00:50 AST 17 U/L (0-40) 09/20/22 00:50 ALT 19 U/L (0-41) 09/20/22 00:50 Alkaline Phosphatase 200 U/L (40-130) H 09/20/22 00:50 Total Protein 8.2 g/dL (6.6-8.7) 09/20/22 00:50 Albumin 4.1 g/dL (3.5-5.2) 09/20/22 00:50 Globulin 4.1 g/dL (1.3-4.6) 09/20/22 00:50 Lipase 84 U/L (13-60) H 09/20/22 00:50 Urine Color Colorless (Yellow) 09/20/22 01:30 Urine Appearance Clear (CLEAR) 09/20/22 01:30 Urine pH 5 (5-7) 09/20/22 01:30 Ur Specific Dendron 1.005 (1.005-1.030) 09/20/22 01:30 Urine Protein Neg (Negative) 09/20/22 01:30 Urine Glucose (UA) 4+ (Normal) H 09/20/22 01:30 Urine Ketones Negative (Negative) 09/20/22 01:30 Urine Blood Neg (Negative) 09/20/22 01:30 Urine Nitrate Negative (Negative) 09/20/22 01:30 Urine Bilirubin Neg (Negative) 09/20/22 01:30 Urine Urobilinogen Norm mg/dL (Negative) 09/20/22 01:30 Ur Leukocyte Esterase Negative (Negative) 09/20/22 01:30 Serum Ketones Negative (Negative) 09/20/22 00:50 Discharge Plan Discharge Patient Disposition: Home Clinical Impression: Acute hyperglycemia Condition: Stable Prescriptions: No Action albuterol sulfate 90 mcg/actuation HFA aerosol inhaler 2 puff inhalation Q6H PRN (Reason: shortness of breath or wheezing) Qty: 8.5 0RF (DME) blood sugar diagnostic Strip See Rx Instructions .Route Qty: 10 2RF Rx Instructions: As directed (DME) lancets 32 gauge misc See Rx Instructions .Route Qty: 100 0RF Rx Instructions: As directed insulin glargine 100 unit/mL Solution 15 unit SUBCUT BEDTIME 30 Days Qty: 3 0RF (DME) Blood Glucose Monitoring Kit See Rx Instructions .Route Qty: 1 0RF Rx Instructions: As directed (DME) Blood Glucose Test Strip See Rx Instructions .Route Qty: 50 0RF Rx Instructions: As directed (DME) Lancets, Super Thin Misc See Rx Instructions .Route Qty: 100 0RF Rx Instructions: As directed metformin 500 mg tablet 500 mg PO BID Qty: 60 0RF Discharge Orders: Discharge ED (Routine); Ordered 09/20/22 Ordered By: Maxi Millan Patient Instructions: Diabetic Hyperglycemia (ED) Activity Restrictions/Additional Instructions: Fill the medications prescribed during her hospitalization at the pharmacy this morning and take accordingly. Return for any problems. Coding Level of Care Code ED Director Of Retail Merchandising for Chg Fwd Exam Comprehensive Documented by User: Maxi Millan, DO 09/22/22 23:43 HPI - General Adult General: Chief complaint: General Medical Stated complaint: high bs Time Seen by Provider: 09/20/22 00:55 [facility] ED PFSH: Medical History No pertinent past medical history Surgical History No pertinent past surgical history Family History Other Hypertension Social History Smoking and tobacco status: former smoker Alcohol intake: current Course Vital Signs: Vital signs: Vital Signs Temperature 97.0 F L 09/20/22 00:44 Pulse Rate 88 09/20/22 07:55 Respiratory Rate 18 09/20/22 07:55 Blood Pressure 137/92 09/20/22 07:55 Pulse Oximetry 96 09/20/22 07:55 Oxygen Delivery Me thod 09/20/22 00:44 MDM - General Adult Medical Decision Making Patient returns to the emergency department today for concerns of elevated blood glucose readings. Chart review indicated he was admitted to the ICU for significant hyperglycemia without DKA 2 days ago. When patient discharged, he did not parts picker his medication. After speaking to the hospitalist, she indicated that the staff had called ahead to the pharmacy and patient had over 2 hours to make it to the pharmacy and parts picker his medications. However, patient has not taken any thing since leaving the ICU and has continued to have some vomiting. He denies any severe abdominal pains and no recorded fevers. The supervising hospitalist the patient had while in the ICU is currently here in the department tonight. After reviewing his charts, she indicated that there are no ICU beds currently and that since he has the appropriate medication at the pharmacy, as long as he does not have serum ketones and lab work/blood gases are otherwise stable, patient can be flushed with 4 to 5 L of fluids, treated with insulin here in the ER, and discharged home. Discussed case with Dr. Millan who is currently keeping a close eye on the patient as well. Transfer of care given to Dr. Millan at this time. Patient was originally seen by Mrs Reza PA-C. I agree with her history, evaluation, and treatment. The patient has received 4 liters of fluid, an IV insulin. his sugar has come down nicely. His potassium is now 2.9, and is repleted. Serum ketones were negative. As noted above, the patient has scripts for medication to fill at the pharmacy later this morning. As he is improved significantly, and is not in DKA, he'll be allowed discharge at this point. Lab Data 09/20/22 00:50 Laboratory Results WBC 3.4 10^3/uL (4.0-10.0) L 09/20/22 00:50 RBC 6.13 10^6/uL (4.1-5.3) H 09/20/22 00:50 Hgb 17.3 g/dL (11.7-16.6) H 09/20/22 00:50 Hct 58.9 % (42.0-52.0) H 09/20/22 00:50 MCV 96.1 fl (80-94) H 09/20/22 00:50 MCH 28.2 pg (28.0-34.0) 09/20/22 00:50 MCHC 29.4 g/dL (30.0-36.0) L 09/20/22 00:50 RDW 12.0 % (12.1-15.1) L 09/20/22 00:50 Plt Count 142 10^3/cmm (130-400) 09/20/22 00:50 MPV 11.8 fL (7.4-10.4) H 09/20/22 00:50 Neut % (Auto) 45.3 % 09/20/22 00:50 Lymph % (Auto) 42.7 % 09/20/22 00:50 [place] % (Auto) 9.6 % 09/20/22 00:50 Eos % (Auto) 1.2 % 09/20/22 00:50 Baso % (Auto) 0.3 % 09/20/22 00:50 Neut # (Auto) 1.52 10^3/uL (1.8-7.7) L 09/20/22 00:50 Lymph # (Auto) 1.4 10^3/uL (0.8-4.8) 09/20/22 00:50 [place] # (Auto) 0.3 10^3/uL (0.2-0.9) 09/20/22 00:50 Eos # (Auto) 0.0 10^3/uL (0.0-0.8) 09/20/22 00:50 Baso # (Auto) 0.0 10^3/uL (0.0-0.1) 09/20/22 00:50 Nucleated RBC % (auto) 0 % 09/20/22 00:50 Nucleated RBCs # 0.0 /100WBC 09/20/22 00:50 Specimen Type Arterial 09/20/22 02:00 Sample Site Brachial, left 09/20/22 02:00 ABG pH 7.32 (7.35-7.45) L 09/20/22 02:00 ABG pCO2 40.4 mmHg (35-45) 09/20/22 02:00 ABG pO2 79.1 mmHg (80.0-100.0) L 09/20/22 02:00 ABG HCO3 20.6 mmol/L (22-26) L 09/20/22 02:00 ABG O2 Saturation 95.1 09/20/22 02:00 ABG Base Excess -5.2 mmol/L (-2.0-2.0) L 09/20/22 02:00 Rafael Test N/a 09/20/22 02:00 A-a O2 Gradient 2.7 mmHg (5-10) L 09/20/22 02:00 Hematocrit 48.8 % (42-52) 09/20/22 02:00 Hgb O2 Saturation 93.5 % (95-100) L 09/20/22 02:00 Carboxyhemoglobin 0.8 %THgb (0.4-20.1) 09/20/22 02:00 Methemoglobin 0.9 % (0.4-1.5) 09/20/22 02:00 Total Hemoglobin 15.9 g/dL (14-18) 09/20/22 02:00 Sodium 119.0 mmol/L (131-143) L 09/20/22 02:00 Potassium 4.5 mmol/L (3.5-5.0) 09/20/22 02:00 Glucose > 1080.0 mg/dL (70-115) H 09/20/22 02:00 Ionized Calcium 1.2 mmol/L (1.1-1.4) 09/20/22 02:00 O2 Delivery Device Not Reportable 09/20/22 02:00 FiO2 21.0 % 09/20/22 02:00 Director Of Critical Care ID Sharon 09/20/22 02:00 Sodium 136 mmol/L (136-145) D 09/20/22 06:15 Potassium 2.9 mmol/L (3.5-5.1) L D 09/20/22 06:15 Chloride 103 mmol/L (98-107) 09/20/22 06:15 Carbon Dioxide 23 mmol/L (22-29) 09/20/22 06:15 Anion Gap 12.9 (5-19) 09/20/22 06:15 BUN 15 mg/dL (6-20) 09/20/22 06:15 Creatinine 0.7 mg/dL (0.7-1.2) 09/20/22 06:15 GFR Calculation 124.3 mL/min (90-130) 09/20/22 06:15 Glucose 410 mg/dL (65-115) H 09/20/22 06:15 POC Glucose 265 mg/dL (70-110) H 09/20/22 07:13 Calculated Osmolality 300 mOsm/kg (285-295) H 09/20/22 06:15 Calcium 8.6 mg/dL (8.5-10.5) 09/20/22 06:15 Total Bilirubin 1.1 mg/dL (0.15-1.2) 09/20/22 00:50 AST 17 U/L (0-40) 09/20/22 00:50 ALT 19 U/L (0-41) 09/20/22 00:50 Alkaline Phosphatase 200 U/L (40-130) H 09/20/22 00:50 Total Protein 8.2 g/dL (6.6-8.7) 09/20/22 00:50 Albumin 4.1 g/dL (3.5-5.2) 09/20/22 00:50 Globulin 4.1 g/dL (1.3-4.6) 09/20/22 00:50 Lipase 84 U/L (13-60) H 09/20/22 00:50 Urine Color Colorless (Yellow) 09/20/22 01:30 Urine Appearance Clear (CLEAR) 09/20/22 01:30 Urine pH 5 (5-7) 09/20/22 01:30 Ur Specific [place] 1.005 (1.005-1.030) 09/20/22 01:30 Urine Protein Neg (Negative) 09/20/22 01:30 Urine Glucose (UA) 4+ (Normal) H 09/20/22 01:30 Urine Ketones Negative (Negative) 09/20/22 01:30 Urine Blood Neg (Negative) 09/20/22 01:30 Urine Nitrate Negative (Negative) 09/20/22 01:30 Urine Bilirubin Neg (Negative) 09/20/22 01:30 Urine Urobilinogen Norm mg/dL (Negative) 09/20/22 01:30 Ur Leukocyte Esterase Negative (Negative) 09/20/22 01:30 Serum Ketones Negative (Negative) 09/20/22 00:50 Discharge Plan Discharge Patient Disposition: Home Clinical Impression: Acute hyperglycemia Condition: Stable Prescriptions: No Action albuterol sulfate 90 mcg/actuation HFA aerosol inhaler 2 puff inhalation Q6H PRN (Reason: shortness of breath or wheezing) Qty: 8.5 0RF (DME) blood sugar diagnostic Strip See Rx Instructions .Route Qty: 10 2RF Rx Instructions: As directed (DME) lancets 32 gauge misc See Rx Instructions .Route Qty: 100 0RF Rx Instructions: As directed insulin glargine 100 unit/mL Solution 15 unit SUBCUT BEDTIME 30 Days Qty: 3 0RF (DME) Blood Glucose Monitoring Kit See Rx Instructions .Route Qty: 1 0RF Rx Instructions: As directed (DME) Blood Glucose Test Strip See Rx Instructions .Route Qty: 50 0RF Rx Instructions: As directed (DME) Lancets, Super Thin Misc See Rx Instructions .Route Qty: 100 0RF Rx Instructions: As directed metformin 500 mg tablet 500 mg PO BID Qty: 60 0RF Discharge Orders: Discharge ED (Routine); Ordered 09/20/22 Ordered By: Maxi Millan Patient Instructions: Diabetic Hyperglycemia (ED) Activity Restrictions/Additional Instructions: Fill the medications prescribed during her hospitalization at the pharmacy this morning and take accordingly. Return for any problems. Coding Level of Care Code ED Director Of Retail Merchandising for Chg Fwd Exam Comprehensive
[2022-09-20 01:35] LABS: Alanine Aminotransferase 19 U/L (0-41); Albumin Level 4.1 g/dL (3.5-5.2); Alkaline Phosphatase 200 U/L (40-130); Blood Urea Nitrogen 22 mg/dL (6-20); Calcium 9.7 mg/dL (8.5-10.5); Carbon Dioxide 21 mmol/L (22-29); Chloride 79 mmol/L (98-107); Creatinine Clr Calc Pharmacy 95.6962; Globulin 4.1 g/dL (1.3-4.6); Glomerular Filtration Rate 82.3 mL/min (90-130); Lipase 84 U/L (13-60); Total Bilirubin 1.1 mg/dL (0.15-1.2); Total Protein 8.2 g/dL (6.6-8.7)
[2022-09-20 01:43] LABS: Basophils % 0.3 %; Eosinophils % 1.2 %; Hematocrit 58.9 % (42.0-52.0); Hemoglobin 17.3 g/dL (11.7-16.6); Lymphocytes # 1.4 10^3/uL (0.8-4.8); Lymphocytes % 42.7 %; Mean Corpuscular HGB Conc 29.4 g/dL (30.0-36.0); Mean Corpuscular Hemoglobin 28.2 pg (28.0-34.0); Mean Corpuscular Volume 96.1 fl (80-94); Mean Platelet Volume 11.8 fL (7.4-10.4); Monocytes # 0.3 10^3/uL (0.2-0.9); Monocytes % 9.6 %; Neutrophils # 1.52 10^3/uL (1.8-7.7); Neutrophils % 45.3 %; Nucleated Red Blood Cells % 0 %; Osmolality Calculated 320 mOsm/kg (285-295); Platelet Count 142 10^3/cmm (130-400); Red Blood Count 6.13 10^6/uL (4.1-5.3); White Blood Count 3.4 10^3/uL (4.0-10.0)
[2022-09-20 01:47] LABS: Anion Gap 21.6 (5-19); Aspartate Amino Transferase 17 U/L (0-40); Potassium 5.6 mmol/L (3.5-5.1)
[2022-09-20 01:48] LABS: Glucose 1440 mg/dL (65-115); Sodium 116 mmol/L (136-145)
[2022-09-20] MEDS: insulin regular-human 100 units/1 mL 10 UNIT IVP (01:48)
[2022-09-20 01:53] LABS: Add Urine Microscopic? NO; Charge for UA Resulting for Rev
[2022-09-20] MEDS: sodium chloride 0.9% 1,000 ML 999 ML IV ×3 (01:53→02:54)
[2022-09-20 02:00] LABS: Bilirubin Urine Neg (Negative); Blood Urine Neg (Negative); Glucose Urine UA 4+ (Normal); Ketones Urine Negative (Negative); Leukocyte Esterase Urine Negative (Negative); Nitrate Urine Negative (Negative); Protein Urine Neg (Negative); Specific Gravity, Urine 1.005 (1.005-1.030); Urine Appearance Clear (CLEAR); Urine Color Colorless (Yellow); Urobilinogen Urine Norm (Negative); pH Urine 5 (5-7)
[2022-09-20 02:11] LABS: ABG PCO2 40.4 mmHg (35-45); ABG PH Result 7.32 (7.35-7.45); Alveolar-Arterial Oxygen Gradi 2.7 mmHg (5-10); Arterial Blood Gas Hematocrit 48.8 % (42-52); Base Excess ABG -5.2 mmol/L (-2.0-2.0); Blood Gas Sample Site Brachial, left; Blood Gas Sample Type Arterial; Carboxyhemoglobin 0.8 %THgb (0.4-20.1); Glucose Level-ABG > 1080.0 mg/dL (70-115); HCO3 ABG 20.6 mmol/L (22-26); HGB O2 Sat 93.5 % (95-100); Ionized Calcium Level - ABG 1.2 mmol/L (1.1-1.4); Methemoglobin 0.9 % (0.4-1.5); Oxygen Saturation ABG 95.1; PO2 ABG 79.1 mmHg (80.0-100.0); Potassium Level - ABG 4.5 mmol/L (3.5-5.0); Total Hemoglobin 15.9 g/dL (14-18)
[2022-09-20 02:16] LABS: Slide Review Slide Review Perform
[2022-09-20] MEDS: insulin regular-human 250 UNIT in sodium chloride 0.9% 250 ML 15 UNIT IV (03:25)
[2022-09-20] MEDS: sodium chloride 0.9% 1,000 ML 30 ML IV (04:54)
[2022-09-20 05:48] LABS: Glucose Point of Care 472 mg/dL (70-110)
[2022-09-20 06:30] LABS: Glucose Point of Care 298 mg/dL (70-110)
[2022-09-20 06:42] LABS: Anion Gap 12.9 (5-19); Blood Urea Nitrogen 15 mg/dL (6-20); Calcium 8.6 mg/dL (8.5-10.5); Carbon Dioxide 23 mmol/L (22-29); Chloride 103 mmol/L (98-107); Glomerular Filtration Rate 124.3 mL/min (90-130); Glucose 410 mg/dL (65-115); Osmolality Calculated 300 mOsm/kg (285-295); Sodium 136 mmol/L (136-145)
[2022-09-20 06:52] LABS: Potassium 2.9 mmol/L (3.5-5.1)
[2022-09-20] MEDS: potassium chloride oral liq 20 mEq/15 mL UDC 40 MEQ PO (07:17)
[2022-09-20 07:38] LABS: Glucose Point of Care 265 mg/dL (70-110)
== END 2022-09-20 07:59 | disposition home or self-care (01) ==
PROVIDERS: Physician Assistant; Emergency Provider Emergency Medicine
DX: E11.65 Type 2 diabetes mellitus with hyperglycemia (principal); Z79.84 Long term (current) use of oral hypoglycemic drugs; Z79.4 Long term (current) use of insulin; Z87.891 Personal history of nicotine dependence
CPT/HCPCS: 36416; 36600; 80048; 80051; 80053; 81003; 82009; 82330; 82805; 82962; 83690; 85025; 96365; 96366; 96375; 99284; J1815; J7030; J7050

== ENCOUNTER → 2022-09-22 12:46 | Outpatient (BNVA) | payer MEDICAID, SELFPAY | PROVIDERS: Visit Provider Internal Medicine | DX: E11.9 Type 2 diabetes mellitus without complications (principal); H53.8 Other visual disturbances | CPT/HCPCS: 36415; 80053; 80061; 82044; 83036; 84681; 86337; 86341 ==

== ENCOUNTER 2023-05-23 16:22 | Emergency (ER) | payer MEDICAID, SELFPAY ==
[2023-05-23] VITALS (22 sets, daily range): BP systolic 128–153; BP diastolic 75–90; PULSE 54–76; RESP 9–21; TEMP 36.4; O2SAT 93–99; BMI 25.0
[2023-05-23 16:48] LABS: Glucose Point of Care > 600 mg/dL (70-110)
--- NOTE | 2023-05-23 17:53 | XRR_ITS ---
PROCEDURE INFORMATION: Exam: XR Chest Exam date and time: 05/23/2023 6:02 PM Age: 42 years old Clinical indication: Other: Weakness, dizziness, shaking; Additional info: Dyspnea/cough TECHNIQUE: Imaging protocol: Radiologic exam of the chest. Views: 1 view. COMPARISON: No relevant prior studies available. FINDINGS: Lungs: Left upper lobe calcified granuloma. Pleural spaces: Unremarkable. No pleural effusion. No pneumothorax. Heart/Mediastinum: Unremarkable. No cardiomegaly. Bones/joints: Unremarkable. XR/XR chest 1V portable [id number] IMPRESSION: Negative for infiltrate.
--- NOTE | 2023-05-23 17:55 | PC.NURSE ---
nurse assumed care at 17:50
[2023-05-23 18:12] LABS: ABG PH Result 7.45 (7.35-7.45); Alveolar-Arterial Oxygen Gradi 2.5 mmHg (5-10); Arterial Blood Gas Hematocrit 51.7 % (42-52); Base Excess ABG 2.1 mmol/L (-2.0-2.0); Blood Gas Allen Test Pos; Blood Gas Operator Identificat CAK; Blood Gas Sample Site Radial, left; Blood Gas Sample Type Arterial; Carboxyhemoglobin 1.1 %THgb (0.4-20.1); HCO3 ABG 25.9 mmol/L (22-26); HGB O2 Sat 96.1 % (95-100); Ionized Calcium Level - ABG 1.2 mmol/L (1.1-1.4); Methemoglobin 0.1 % (0.4-1.5); Oxygen Device ROOM AIR; Oxygen Saturation ABG 97.2; Potassium Level - ABG 4.8 mmol/L (3.5-5.0); Total Hemoglobin 16.9 g/dL (14-18)
[2023-05-23 18:43] LABS: Glucose Point of Care > 600 mg/dL (70-110)
[2023-05-23] MEDS: insulin regular-human 100 units/1 mL 11 UNIT IVP (18:54)
[2023-05-23] MEDS: sodium chloride 0.9% 1,000 ML 999 ML IV ×3 (18:59→19:47)
--- NOTE | 2023-05-23 19:01 | W.ED.DIZZY ---
HPI - Dizziness General: Chief Complaint: Dizziness Stated Complaint: vision loss, dizzy, sweaty, diabetic Time Seen by Provider: 05/23/23 17:35 Source: patient Mode of arrival: ambulatory Limitations: no limitations History of Present Illness: HPI Narrative: 42-year-old male has a history of type 1 diabetes states that he has been having some dizziness along with weakness and some vision difficulty. He states he has been out of his insulin over the last 3 days and has not taken any states he has felt this way before when he is hyperglycemic. His blood sugar reading here is over 600. He denies any vomiting or diarrhea he has had some polyuria. Denies any cough or fever. Associated symptoms: Reports malaise; Denies chest pain, chills, headache(s), nausea or vomiting Review of Systems Const: Reports: malaise; Denies: fever(s), chills, body aches or change in appetite Eyes: Reports: blurry vision; Denies: eye discomfort ENMT: Denies: throat pain or dental pain Card: Denies: chest pain Resp: Denies: dyspnea GI: Denies: abdominal pain, nausea, vomiting or diarrhea : Denies: dysuria Musc: Denies: neck pain or back pain Skin/Breast: Denies: rash Neuro: Denies: headache(s) PFSH ED PFSH: Medical History No pertinent past medical history Surgical History No pertinent past surgical history Family History Other Hypertension Social History Smoking and tobacco status: former smoker Alcohol intake: current Substance/Drug Use: current Substance/Drug use frequency: Special occassions/opportunity only Physical Exam Const: COMMON NORMALS: no acute distress, patient oriented x3 and healthy appearing HENMT: COMMON NORMALS: normocephalic and atraumatic HEAD & SCALP: normocephalic and atraumatic Eye: COMMON NORMALS: Equal, round and reactive pupils present and EOMs intact bilaterally PUPIL: Yes Equal, round and reactive pupils present Neck/C-Spine: COMMON NORMALS: full ROM and supple Chest: COMMONS NORMALS: normal inspection of the chest and normal palpation of entire chest wall Resp: COMMON NORMALS: normal respiratory effort, No retractions, No use of accessory muscles and clear to auscultation bilaterally AUSCULTATION: clear to auscultation bilaterally Cardio: COMMON NORMALS: regular rate, regular rhythm and No murmurs present (Cardio) RATE: regular rate RHYTHM: regular rhythm GI: COMMON NORMALS: Normal to inspection, nondistended, normoactive bowel sounds present, Soft to palpation, non-tender and no masses PALPATION: Yes Soft to palpation Extremity: COMMON NORMALS: normal to inspection and full ROM Neuro: COMMON NORMALS: patient oriented x3, moves all extremities and no focal motor deficits Psych: COMMON NORMALS: mental status grossly normal, Normal thought process present and cooperative THOUGHT PROCESS: Normal thought process present Skin: COMMON NORMALS: no rashes or lesions noted and no wounds GENERAL SKIN EXAM: no rashes or lesions noted Course Vital Signs: Vital signs: Vital Signs Temperature 97.6 F 05/23/23 16:36 Pulse Rate 54 L 05/23/23 20:30 Respiratory Rate 15 05/23/23 20:30 Blood Pressure 153/90 05/23/23 20:30 Pulse Oximetry 99 05/23/23 20:30 Oxygen Delivery Me thod Room Air 05/23/23 20:30 MDM - Dizziness Medical Decision Making Patient presents here with hyperglycemia due to noncompliance his blood sugar here is improved he feels improved he is not DKA we will refill him his insulin 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 Medical Records I reviewed the patient's medical records. Lab Data I reviewed the patient's lab results. 05/23/23 18:47 05/23/23 18:47 Radiology Impressions Chest X-Ray 05/23/23 17:53 IMPRESSION: Negative for infiltrate. Laboratory Results WBC 5.96 10^3/uL (3.29-11.43) 05/23/23 18:47 RBC 5.99 10^6/uL (3.85-5.65) H 05/23/23 18:47 Hgb 16.90 g/dL (11.27-16.99) 05/23/23 18:47 Hct 50.1 % (37-53) 05/23/23 18:47 MCV 83.6 fl (82-101) 05/23/23 18:47 MCH 28.2 pg (27-33) 05/23/23 18: MCHC 33.7 g/dL (30-55) 05/23/23 18:47 RDW 12.2 % (12.1-15.1) 05/23/23 18:47 Plt Count 243 10^3/cmm (157-399) 05/23/23 18:47 MPV 11.2 fL (7.4-10.4) H 05/23/23 18:47 Neut % (Auto) 56.4 % 05/23/23 18:47 Lymph % (Auto) 29.5 % 05/23/23 18:47 [place] % (Auto) 8.7 % 05/23/23 18:47 Eos % (Auto) 4.0 % 05/23/23 18: Baso % (Auto) 0.7 % 05/23/23 18: Neut # (Auto) 3.36 10^3/uL (1.8-7.7) 05/23/23 18:47 Lymph # (Auto) 1.8 10^3/uL (0.8-4.8) 05/23/23 18:47 [place] # (Auto) 0.5 10^3/uL (0.2-0.9) 05/23/23 18:47 Eos # (Auto) 0.2 10^3/uL (0.0-0.8) 05/23/23 18: Baso # (Auto) 0.0 10^3/uL (0.0-0.1) 05/23/23 18: Nucleated RBC % (auto) 0 % 05/23/23 18: Nucleated RBCs # 0.0 /100WBC 05/23/23 18:47 Specimen Type Arterial 05/23/23 18:00 Sample Site Radial, left 05/23/23 18:00 ABG pH 7.45 (7.35-7.45) 05/23/23 18:00 ABG pCO2 37.0 mmHg (35-45) 05/23/23 18:00 ABG pO2 84.0 mmHg (80.0-100.0) 05/23/23 18:00 ABG HCO3 25.9 mmol/L (22-26) 05/23/23 18:00 ABG O2 Saturation 97.2 05/23/23 18:00 ABG Base Excess 2.1 mmol/L (-2.0-2.0) H 05/23/23 18:00 Rafael Test Pos 05/23/23 18:00 A-a O2 Gradient 2.5 mmHg (5-10) L 05/23/23 18:00 Hematocrit 51.7 % (42-52) 05/23/23 18:00 Hgb O2 Saturation 96.1 % (95-100) 05/23/23 18:00 Carboxyhemoglobin 1.1 %THgb (0.4-20.1) 05/23/23 18:00 Methemoglobin 0.1 % (0.4-1.5) L 05/23/23 18:00 Total Hemoglobin 16.9 g/dL (14-18) 05/23/23 18:00 Sodium 128.0 mmol/L (131-143) L 05/23/23 18:00 Potassium 4.8 mmol/L (3.5-5.0) 05/23/23 18:00 Glucose 691.0 mg/dL (70-115) H 05/23/23 18:00 Ionized Calcium 1.2 mmol/L (1.1-1.4) 05/23/23 18:00 O2 Delivery Device Room air 05/23/23 18:00 FiO2 21.0 % 05/23/23 18:00 Community Marketing Coordinator ID Cak 05/23/23 18:00 Sodium 127 mmol/L (136-145) L 05/23/23 18:47 Potassium 5.2 mmol/L (3.5-5.1) H 05/23/23 18:47 Chloride 88 mmol/L (98-107) L 05/23/23 18:47 Carbon Dioxide 29 mmol/L (22-29) 05/23/23 18:47 Anion Gap 15.2 (5-19) 05/23/23 18:47 BUN 19 mg/dL (6-20) 05/23/23 18:47 Creatinine 1.0 mg/dL (0.7-1.2) 05/23/23 18:47 GFR Calculation 81.9 mL/min (90-130) L 05/23/23 18:47 Glucose 657 mg/dL (65-115) H* 05/23/23 18:47 POC Glucose 370 mg/dL (70-110) H 05/23/23 20:24 Calculated Osmolality 297 mOsm/kg (285-295) H 05/23/23 18:47 Lactic Acid 2.0 mmol/L (0.5-2.2) 05/23/23 18:47 Calcium 9.7 mg/dL (8.5-10.5) 05/23/23 18:47 Magnesium 2.3 mg/dL (1.7-2.3) 05/23/23 18:47 Total Bilirubin 1.5 mg/dL (0.15-1.2) H 05/23/23 18:47 AST 12 U/L (0-40) 05/23/23 18:47 ALT 16 U/L (0-41) 05/23/23 18:47 Alkaline Phosphatase 131 U/L (40-130) H 05/23/23 18:47 Total Protein 7.7 g/dL (6.6-8.7) 05/23/23 18:47 Albumin 4.3 g/dL (3.5-5.2) 05/23/23 18:47 Globulin 3.4 g/dL (1.3-4.6) 05/23/23 18:47 Lipase 62 U/L (13-60) H 05/23/23 18:47 Urine Color Yellow (Yellow) 05/23/23 17:46 Urine Appearance Clear (CLEAR) 05/23/23 17:46 Urine pH 6 (5-7) 05/23/23 17:46 Ur Specific [place] 1.010 (1.005-1.030) 05/23/23 17:46 Urine Protein Neg (Negative) 05/23/23 17:46 Urine Glucose (UA) 4+ (Normal) H 05/23/23 17:46 Urine Ketones Negative (Negative) 05/23/23 17:46 Urine Blood Neg (Negative) 05/23/23 17:46 Urine Nitrate Negative (Negative) 05/23/23 17:46 Urine Bilirubin Neg (Negative) 05/23/23 17:46 Urine Urobilinogen Norm mg/dL (Negative) 05/23/23 17:46 Ur Leukocyte Esterase Negative (Negative) 08/28/23 17:46 Serum Ketones Negative (Negative) 05/23/23 18:47 Discharge Plan Discharge Patient Disposition: Home Clinical Impression: Diabetes type I, Acute hyperglycemia Condition: Stable Prescriptions: Continued metformin 500 mg tablet 500 mg PO BID Qty: 60 0RF insulin glargine 100 unit/mL solution 20 unit SUBCUT DAILY 90 Days Qty: 18 2RF Novolog U-100 Insulin aspart 100 unit/mL solution 10 unit SUBCUT TID Qty: 27 0RF Lantus Solostar U-100 Insulin 100 unit/mL (3 mL) insulin pen 24 unit SUBCUT DAILY Qty: 22 3RF No Action albuterol sulfate 90 mcg/actuation HFA aerosol inhaler 2 puff inhalation Q6H PRN (Reason: shortness of breath or wheezing) Qty: 8.5 0RF (DME) blood sugar diagnostic Strip See Rx Instructions .Route Qty: 10 2RF Rx Instructions: As directed (DME) lancets 32 gauge misc See Rx Instructions .Route Qty: 100 0RF Rx Instructions: As directed (DME) pen needle, diabetic [BD Ultra-Fine Micro Pen Needle] 32 gauge x 1/4 needle See Rx Instructions .Route Qty: 300 3RF Rx Instructions: TID (DME) Dexcom G6 Transmitter Device See Rx Instructions .ROUTE .MEDSUPPLY Qty: 1 3RF Rx Instructions: change every 3 months (DME) 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 Misc See Rx Instructions .ROUTE .MEDSUPPLY Qty: 1 3RF Rx Instructions: change every 90 days (DME) Dexcom G6 Sensor Device See Rx Instructions .ROUTE .MEDSUPPLY Qty: 9 3RF Rx Instructions: change every 10 days (DME) Blood Glucose Monitoring Kit See Rx Instructions .Route Qty: 1 0RF Rx Instructions: As directed (DME) Blood Glucose Test Strip See Rx Instructions .Route Qty: 50 0RF Rx Instructions: As directed (DME) Lancets, Super Thin Misc See Rx Instructions .Route Qty: 100 0RF Rx Instructions: As directed Discharge Orders: Discharge ED (Routine); Ordered 05/23/23 Ordered By: Yasmany Hair Referrals: Marisol Serrato MD [Primary Care Provider] - 1-3 days Discharge Diet: Advance as tolerated Discharge Activity: Resume usual activity Patient Instructions: Diabetic Hyperglycemia (ED) Coding Level of Care Code ED Dance Artist for Chg Pancho
[2023-05-23 19:14] LABS: Add Urine Microscopic? NO; Charge for UA Resulting for Rev
[2023-05-23 19:31] LABS: Bilirubin Urine Neg (Negative); Blood Urine Neg (Negative); Glucose Urine UA 4+ (Normal); Ketones Urine Negative (Negative); Leukocyte Esterase Urine Negative (Negative); Nitrate Urine Negative (Negative); Protein Urine Neg (Negative); Urine Appearance Clear (CLEAR); Urine Color Yellow (Yellow); Urobilinogen Urine Norm (Negative); pH Urine 6 (5-7)
[2023-05-23 19:39] LABS: Glucose Point of Care 557 mg/dL (70-110)
[2023-05-23 19:44] LABS: Basophils % 0.7 %; Eosinophils # 0.2 10^3/uL (0.0-0.8); Hematocrit 50.1 % (37-53); Lymphocytes # 1.8 10^3/uL (0.8-4.8); Lymphocytes % 29.5 %; Mean Corpuscular HGB Conc 33.7 g/dL (30-55); Mean Corpuscular Hemoglobin 28.2 pg (27-33); Mean Corpuscular Volume 83.6 fl (82-101); Mean Platelet Volume 11.2 fL (7.4-10.4); Monocytes # 0.5 10^3/uL (0.2-0.9); Monocytes % 8.7 %; Neutrophils # 3.36 10^3/uL (1.8-7.7); Neutrophils % 56.4 %; Nucleated Red Blood Cells % 0 %; Platelet Count 243 10^3/cmm (157-399); Red Blood Count 5.99 10^6/uL (3.85-5.65); Red Cell Distribution Width 12.2 % (12.1-15.1); White Blood Count 5.96 10^3/uL (3.29-11.43)
[2023-05-23] MEDS: insulin regular-human 100 units/1 mL 10 UNIT IVP (19:47)
[2023-05-23 19:56] LABS: Ketone (Acetest) Serum Negative (Negative)
[2023-05-23 20:13] LABS: Alanine Aminotransferase 16 U/L (0-41); Albumin Level 4.3 g/dL (3.5-5.2); Alkaline Phosphatase 131 U/L (40-130); Anion Gap 15.2 (5-19); Aspartate Amino Transferase 12 U/L (0-40); Blood Urea Nitrogen 19 mg/dL (6-20); Calcium 9.7 mg/dL (8.5-10.5); Carbon Dioxide 29 mmol/L (22-29); Chloride 88 mmol/L (98-107); Globulin 3.4 g/dL (1.3-4.6); Glomerular Filtration Rate 81.9 mL/min (90-130); Lipase 62 U/L (13-60); Magnesium 2.3 mg/dL (1.7-2.3); Osmolality Calculated 297 mOsm/kg (285-295); Potassium 5.2 mmol/L (3.5-5.1); Sodium 127 mmol/L (136-145); Total Bilirubin 1.5 mg/dL (0.15-1.2); Total Protein 7.7 g/dL (6.6-8.7)
[2023-05-23 20:17] LABS: Glucose 657 mg/dL (65-115)
[2023-05-23 20:27] LABS: Glucose Point of Care 370 mg/dL (70-110)
== END 2023-05-23 22:07 | disposition home or self-care (01) ==
PROVIDERS: Family Medicine; Emergency Provider Emergency Medicine; PCP Internal Medicine
DX: E10.65 Type 1 diabetes mellitus with hyperglycemia (principal); Z79.4 Long term (current) use of insulin; Z79.84 Long term (current) use of oral hypoglycemic drugs; Z87.891 Personal history of nicotine dependence
CPT/HCPCS: 36416; 36600; 71045; 80051; 80053; 81003; 82009; 82330; 82805; 82962; 83605; 83690; 83735; 85025; 96374; 96376; 99284; 99291; J1815; J7030

== ENCOUNTER 2023-09-12 20:43 | Emergency (ER) | payer MEDICAID, SELFPAY ==
[2023-09-12 21:12] VITALS: BP 169/103; PULSE 96; RESP 18; TEMP 36.7; O2SAT 98; BMI 24.3
[2023-09-12 21:12] LABS: Glucose Point of Care 578 mg/dL (70-110)
--- NOTE | 2023-09-12 21:12 | ED_ITS ---
HPI - General Adult General: Chief complaint: General Medical Stated complaint: Diabetic Need Meds Time Seen by Provider: 09/12/23 20:47 Source: patient Mode of arrival: ambulatory Limitations: no limitations History of Present Illness: 42-year-old male has a history of type 1 diabetes states he has been out of his insulin for quite some time. He states that he wants to get his med refill. He denies feeling poorly denies any shortness of breath denies any vomiting or diarrhea. Associated symptoms: Deny chest pain, dyspnea, headache(s), nausea, rash or v omiting Review of Systems Const: Denies: fever(s), chills, body aches or change in appetite Eyes: Denies: blurry vision or eye discomfort ENMT: Denies: throat pain or dental pain Card: Denies: chest pain Resp: Denies: dyspnea GI: Denies: abdominal pain, nausea, vomiting or diarrhea : Denies: dysuria Musc: Denies: neck pain or back pain Skin/Breast: Denies: rash Neuro: Denies: headache(s) Psych: Denies: depression Jarrett/Lymph: Denies: easy bruising All/Imm: Denies: urticaria PFSH ED PFSH: Medical History No pertinent past medical history Surgical History No pertinent past surgical history Family History Other Hypertension Social History Smoking and tobacco/nicotine status: former use of tobacco/nicotine Alcohol intake: current Substance/Drug Use: current Substance/Drug use frequency: Special occa ssions/opportunity only Physical Exam Const: COMMON NORMALS: no acute distress, patient oriented x3 and healthy appearing HENMT: COMMON NORMALS: normocephalic and atraumatic HEAD & SCALP: normocephalic and atraumatic Neck/C-Spine: COMMON NORMALS: full ROM and supple Chest: COMMONS NORMALS: normal inspection of the chest Resp: COMMON NORMALS: normal respiratory effort Extremity: COMMON NORMALS: normal to inspection and full ROM Neuro: COMMON NORMALS: patient oriented x3, moves all extremities and no focal motor deficits Psych: COMMON NORMALS: mental status grossly normal, Normal thought process present and cooperative THOUGHT PROCESS: Normal thought process present Skin: COMMON NORMALS: no rashes or lesions noted and no wounds GENERAL SKIN EXAM: no rashes or lesions noted Course Vital Signs: Vital signs: Vital Signs Temperature 98.0 F 09/12/23 21:12 Pulse Rate 96 09/12/23 21:12 Respiratory Rate 18 09/12/23 21:12 Blood Pressure 169/103 09/12/23 21:12 Pulse Oximetry 98 09/12/23 21:12 Oxygen Delivery Me thod Room Air 09/12/23 21:12 MDM - General Adult Medical Decision Making Patient presents with hyperglycemia has been out of his meds. His blood sugar here is over 500 I recommended IV blood work and fluids and monitor here to make sure he is not DKA. He states he does not want any of that he is here with his daughter who I also saw as a patient in the room he states that he just wanted to be seen to get a refill on his meds does not want any treatment and would like to go home at this time. Medical Records I reviewed the patient's medical records. Lab Data I reviewed the patient's lab results. Laboratory Results POC Glucose 578 mg/dL (70-110) H* 09/12/23 21:10 No radiology studies performed this visit Discharge Plan Discharge Patient Disposition: Home Clinical Impression: Acute hyperglycemia, Medication refill Condition: Stable Prescriptions: Continued insulin glargine 100 unit/mL solution 20 unit SUBCUT DAILY 90 Days Qty: 18 2RF insulin aspart U-100 100 unit/mL (3 mL) insulin pen See Rx Instructions .ROUTE .COMPLEX Qty: 27 0RF Dose Instruction: inject 10 units SUBCUTANEOUSLY THREE TIMES DAILY Rx Instructions: inject 10 units SUBCUTANEOUSLY THREE TIMES DAILY insulin glargine [Lantus Solostar U-100 Insulin] 100 unit/mL (3 mL) insulin pen 24 unit SUBCUT DAILY Qty: 22 3RF No Action albuterol sulfate 90 mcg/actuation HFA aerosol inhaler 2 puff inhalation Q6H PRN (Reason: shortness of breath or wheezing) Qty: 8.5 0RF (DME) blood sugar diagnostic Strip See Rx Instructions .Route Qty: 10 2RF Rx Instructions: As directed (DME) lancets 32 gauge misc See Rx Instructions .Route Qty: 100 0RF Rx Instructions: As directed (DME) pen needle, diabetic [BD Ultra-Fine Micro Pen Needle] 32 gauge x 1/4 needle See Rx Instructions .Route Qty: 300 3RF Rx Instructions: TID (DME) FreeStyle Alexy 2 [place] Misc See Rx Instructions .ROUTE .MEDSUPPLY Qty: 1 0RF Rx Instructions: As directed (DME) FreeStyle Alexy 2 Sensor Kit See Rx Instructions .Route Qty: 6 0RF Rx Instructions: As directed metformin 500 mg tablet 500 mg PO BID Qty: 60 0RF (DME) Blood Glucose Monitoring Kit See Rx Instructions .Route Qty: 1 0RF Rx Instructions: As directed (DME) Blood Glucose Test Strip See Rx Instructions .Route Qty: 50 0RF Rx Instructions: As directed (DME) Lancets, Super Thin Misc See Rx Instructions .Route Qty: 100 0RF Rx Instructions: As directed Discharge Orders: Discharge ED (Routine); Ordered 09/12/23 Ordered By: Yasmany Hair Referrals: Marisol Serrato MD [Primary Care Provider] - 1-3 days Discharge Diet: Advance as tolerated Discharge Activity: Resume usual activity Patient Instructions: Diabetic Hyperglycemia (ED) Coding Level of Care Code ED Associate Juvenile Court Judge for April Deleon
[2023-09-12] MEDS: insulin glargine 100 units/1 mL 20 UNIT SUBCUT (21:40)
== END 2023-09-12 21:53 | disposition home or self-care (01) ==
PROVIDERS: Emergency Provider Emergency Medicine; PCP Internal Medicine
DX: Z76.0 Encounter for issue of repeat prescription (principal); E10.65 Type 1 diabetes mellitus with hyperglycemia; Z79.84 Long term (current) use of oral hypoglycemic drugs; Z79.4 Long term (current) use of insulin; Z87.891 Personal history of nicotine dependence
CPT/HCPCS: 36416; 82962; 96372; 99284; J1815

== ENCOUNTER → 2023-10-31 08:02 | Outpatient (BNVA) | payer MEDICAID, SELFPAY | PROVIDERS: PCP Internal Medicine; Visit Provider Internal Medicine | DX: H53.8 Other visual disturbances (principal); E10.9 Type 1 diabetes mellitus without complications; E78.2 Mixed hyperlipidemia; Z79.4 Long term (current) use of insulin; Z79.84 Long term (current) use of oral hypoglycemic drugs | CPT/HCPCS: 99214 ==

== ENCOUNTER 2024-04-20 09:32 | Emergency (ER) | payer MEDICAID, SELFPAY ==
[2024-04-20] VITALS (7 sets, daily range): BP systolic 134–156; BP diastolic 80–105; PULSE 68–108; RESP 13–22; O2SAT 92–100; BMI 25.0
[2024-04-20] MEDS: glucagon 1 mg/mL KIT 1 mL IM (09:40)
[2024-04-20] MEDS: dextrose 10% 250 ML 999 ML IV (09:45)
--- NOTE | 2024-04-20 09:49 | XR_ITS ---
WS: [id number] XR chest 1V portable [id number] REASON FOR EXAM: dyspnea/cough FINDINGS: The chest is relatively unchanged compared to 05/23/2023 accounting for the difference in technique an d degree of inspiration. The heart and mediastinum are within normal limits. There is calcified granulomatous disease bilaterally. There is mild elevation of the right hemidiaphragm. No acute/subacute pulmonary parenchymal or pleural abnormality is identified. Mild degenerative spondylosis in the thoracic spine. XR/XR chest 1V portable [id number] IMPRESSION: Stable chest with no acute abnormality.
--- NOTE | 2024-04-20 09:49 | PC.NURSE ---
PATIENT ALERT AND ORIENTED AFTER GLUCAGON AND DEXTROSE DRIP. PT AGGRESSIVE TOWARDS NURSE, KADY ALFREDO, DURING IV START BUT PATIENT UNDERSTANDS REASONING.
[2024-04-20 09:59] LABS: Glucose Point of Care 163 mg/dL (70-110)
[2024-04-20 10:07] LABS: Basophils # 0.1 10^3/uL (0.0-0.1); Basophils % 0.4 %; Eosinophils # 0.1 10^3/uL (0.0-0.8); Eosinophils % 0.5 %; Hematocrit 42.5 % (37-53); Lymphocytes # 1.3 10^3/uL (0.8-4.8); Lymphocytes % 10.9 %; Mean Corpuscular HGB Conc 33.4 g/dL (30-55); Mean Corpuscular Hemoglobin 28.8 pg (27-33); Mean Corpuscular Volume 86.2 fl (82-101); Mean Platelet Volume 10.1 fL (7.4-10.4); Monocytes # 0.6 10^3/uL (0.2-0.9); Monocytes % 4.8 %; Neutrophils # 9.73 10^3/uL (1.8-7.7); Neutrophils % 82.7 %; Nucleated Red Blood Cells % 0 %; Platelet Count 239 10^3/cmm (157-399); Red Blood Count 4.93 10^6/uL (3.85-5.65); Red Cell Distribution Width 12.9 % (12.1-15.1); White Blood Count 11.76 10^3/uL (3.29-11.43)
--- NOTE | 2024-04-20 10:09 | PC.PHAR ---
LAST INSULIN FILLED 09/30/23 [facility]. LANTUS RX ON FILE AT [facility]-NEVER FILLED.
[2024-04-20 10:10] LABS: ABG PCO2 33.4 mmHg (35-45); ABG PH Result 7.48 (7.35-7.45); Arterial Blood Gas Hematocrit 45.2 % (42-52); Blood Gas Allen Test Pos; Blood Gas Operator Identificat MONRO; Blood Gas Sample Site Radial, left; Blood Gas Sample Type Arterial; HGB O2 Sat 97.1 % (95-100); Ionized Calcium Level - ABG 1.2 mmol/L (1.1-1.4); Methemoglobin 0.1 % (0.4-1.5); Oxygen Device ROOM AIR; Oxygen Saturation ABG 98.2; PO2 ABG 92.5 mmHg (80.0-100.0); PO2 FiO2 Ratio Arterial Blood 440; Potassium Level - ABG 2.9 mmol/L (3.5-5.0); Total Hemoglobin 14.8 g/dL (14-18)
[2024-04-20] MEDS: dextrose 10% 1,000 ML 30 ML IV (10:14)
[2024-04-20 10:15] LABS: Ketone (Acetest) Serum Negative (Negative)
[2024-04-20 10:23] LABS: Alanine Aminotransferase 16 U/L (0-41); Albumin Level 3.9 g/dL (3.5-5.2); Alkaline Phosphatase 115 U/L (40-130); Anion Gap 16.3 (5-19); Aspartate Amino Transferase 19 U/L (0-40); Blood Urea Nitrogen 21 mg/dL (6-20); Calcium 9.1 mg/dL (8.5-10.5); Carbon Dioxide 23 mmol/L (22-29); Chloride 107 mmol/L (98-107); Creatine Phosphokinase 213 U/L (39-308); Creatinine Clr Calc Pharmacy 84.1279; Globulin 3.1 g/dL (1.3-4.6); Glomerular Filtration Rate 73.1 mL/min (90-130); Glucose 170 mg/dL (65-115); Osmolality Calculated 303 mOsm/kg (285-295); Potassium 3.3 mmol/L (3.5-5.1); Sodium 143 mmol/L (136-145); Total Bilirubin 0.8 mg/dL (0.15-1.2)
[2024-04-20 10:32] LABS: Glucose Point of Care 182 mg/dL (70-110)
--- NOTE | 2024-04-20 10:59 | ED_ITS ---
HPI - Altered Mental Status 2 General: Chief Complaint: Altered Mental Status Stated Complaint: low sugar, unconcious Time Seen by Provider: 04/20/24 09:49 History of Present Illness: 43-year-old male presents emergency room nonresponsive. 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 Coworker stated checked his glucose prior to arrival he was 32 and we checked on arrival here he was 31. Patient was emergently brought back to the trauma room where he was placed in the bed and access was obtained. He is nonresponsive to verbal stimuli cries out in withdraws from painful stimuli Review of Systems 2 General: Reports: Other (Completed after hypoglycemia resolved.) Const: Denies: fever(s) or chills Card: Denies: chest pain Resp: Denies: dyspnea GI: Denies: abdominal pain : Denies: dysuria, urinary frequency or urinary urgency Musc: Denies: neck pain or back pain Skin/Breast: Denies: rash PFSH ED 2 PFSH: Medical History No pertinent past medical history Surgical History No pertinent past surgical history Family History Other Hypertension Social History Smoking and tobacco/nicotine status: former use of tobacco/nicotine Alcohol intake: current Substance/Drug Use: current Substance/Drug use frequency: Special occassions/opportunity only Physical Exam 2 Const: COMMON NORMALS: no acute distress GENERAL APPEARANCE: cooperative and comfortable ORIENTATION/CONSCIOUSNESS: Yes awake, Yes oriented to person, Yes oriented to place and Yes oriented to time HENMT: COMMON NORMALS: normocephalic, atraumatic and hearing grossly normal bilaterally HEAD & SCALP: normocephalic and atraumatic Resp: COMMON NORMALS: normal respiratory effort, No retractions, No use of accessory muscles and clear to auscultation bilaterally AUSCULTATION: clear to auscultation bilaterally Cardio: COMMON NORMALS: regular rate, regular rhythm and No murmurs present (Cardio) RATE: regular rate RHYTHM: regular rhythm GI: COMMON NORMALS: Soft to palpation and No hepatosplenomegaly present A USCULTATION: Yes normoactive bowel sounds PALPATION: Yes Soft to palpation, No Tenderness to palpation present (GI), No Guarding due to palpation present (GI) and Yes No hepatosplenomegaly present Extremity: COMMON NORMALS: normal to inspection, capillary refill normal, no clubbing, cyanosis or edema, no calf tenderness and no pedal edema Neuro: SENSORIUM/ORIENTATION: Yes oriented to person, Yes oriented to place and Yes oriented to time Skin: COMMON NORMALS: no rashes or lesions noted GENERAL SKIN EXAM: no rashes or lesions noted Course 2 Vital Signs: Vital signs: Vital Signs Pulse Rate 108 H 04/20/24 13:52 Respiratory Rate 13 04/20/24 12:22 Blood Pressure 150/105 04/20/24 13:52 Pulse Oximetry 98 04/20/24 13:52 Oxygen Delivery Me thod Room Air 04/20/24 12:22 MDM - Altered Mental Status Medical Decision Making Initially patient presented acutely hypoglycemic and unresponsive he responded quickly with glucagon and IV D10 bolus. We had difficult time initiating IV first and IO was placed transiently and removed once IV access was gained. After the bolus he was started on D10 at 30 mL an hour and monitored. His blood sugar waxed and waned some then began to improve and remained sustained he was able to eat without any difficulty and blood sugar continues to be good he is not having any further symptoms discharge home avoid excessive activity the rest of the day and monitor blood sugars closely return if has problems prior Lab Data 04/20/24 10:00 04/20/24 10:00 Radiology Impressions Chest X-Ray 04/20/24 09:49 IMPRESSION: Stable chest with no acute abnormality. Laboratory Results WBC 11.76 10^3/uL (3.29-11.43) H 04/20/24 10:00 RBC 4.93 10^6/uL (3.85-5.65) 04/20/24 10:00 Hgb 14.20 g/dL (11.27-16.99) 04/20/24 10:00 Hct 42.5 % (37-53) 04/20/24 10:00 MCV 86.2 fl (82-101) 04/20/24 10:00 MCH 28.8 pg (27-33) 04/20/24 10:00 MCHC 33.4 g/dL (30-55) 04/20/24 10:00 RDW 12.9 % (12.1-15.1) 04/20/24 10:00 Plt Count 239 10^3/cmm (157-399) 04/20/24 10:00 MPV 10.1 fL (7.4-10.4) 04/20/24 10:00 Neut % (Auto) 82.7 % 04/20/24 10:00 Lymph % (Auto) 10.9 % 04/20/24 10:00 [place] % (Auto) 4.8 % 04/20/24 10:00 Eos % (Auto) 0.5 % 04/20/24 10:00 Baso % (Auto) 0.4 % 04/20/24 10:00 Neut # (Auto) 9.73 10^3/uL (1.8-7.7) H 04/20/24 10:00 Lymph # (Auto) 1.3 10^3/uL (0.8-4.8) 04/20/24 10:00 [place] # (Auto) 0.6 10^3/uL (0.2-0.9) 04/20/24 10:00 Eos # (Auto) 0.1 10^3/uL (0.0-0.8) 04/20/24 10:00 Baso # (Auto) 0.1 10^3/uL (0.0-0.1) 04/20/24 10:00 Nucleated RBC % (auto) 0 % 04/20/24 10:00 Nucleated RBCs # 0.0 /100WBC 04/20/24 10:00 Specimen Type Arterial 04/20/24 09:58 Sample Site Radial, left 04/20/24 09:58 ABG pH 7.48 (7.35-7.45) H 04/20/24 09:58 ABG pCO2 33.4 mmHg (35-45) L 04/20/24 09:58 ABG pO2 92.5 mmHg (80.0-100.0) 04/20/24 09:58 ABG PO2/FiO2 Ratio 440 04/20/24 09:58 ABG HCO3 25.0 mmol/L (22-26) 04/20/24 09:58 ABG O2 Saturation 98.2 04/20/24 09:58 ABG Base Excess 2.0 mmol/L (-2.0-2.0) 04/20/24 09:58 Rafael Test Pos 04/20/24 09:58 A-a O2 Gradient 2.0 mmHg (5-10) L 04/20/24 09:58 Hematocrit 45.2 % (42-52) 04/20/24 09:58 Hgb O2 Saturation 97.1 % (95-100) 04/20/24 09:58 Carboxyhemoglobin 1.0 %THgb (0.4-20.1) 04/20/24 09:58 Methemoglobin 0.1 % (0.4-1.5) L 04/20/24 09:58 Total Hemoglobin 14.8 g/dL (14-18) 04/20/24 09:58 Sodium 143.0 mmol/L (131-143) 04/20/24 09:58 Potassium 2.9 mmol/L (3.5-5.0) L 04/20/24 09:58 Glucose 234.0 mg/dL (70-115) H 04/20/24 09:58 Ionized Calcium 1.2 mmol/L (1.1-1.4) 04/20/24 09:58 O2 Delivery Device Room air 04/20/24 09:58 FiO2 21.0 % 04/20/24 09:58 Brickmason Apprentice ID [place] 04/20/24 09:58 Sodium 143 mmol/L (136-145) 04/20/24 10:00 Potassium 3.3 mmol/L (3.5-5.1) L 04/20/24 10:00 Chloride 107 mmol/L (98-107) 04/20/24 10:00 Carbon Dioxide 23 mmol/L (22-29) 04/20/24 10:00 Anion Gap 16.3 (5-19) 04/20/24 10:00 BUN 21 mg/dL (6-20) H 04/20/24 10:00 Creatinine 1.1 mg/dL (0.7-1.2) 04/20/24 10:00 GFR Calculation 73.1 mL/min (90-130) L 04/20/24 10:00 Glucose 170 mg/dL (65-115) H 04/20/24 10:00 POC Glucose 164 mg/dL (70-110) H 04/20/24 13:38 Calculated Osmolality 303 mOsm/kg (285-295) H 04/20/24 10:00 Calcium 9.1 mg/dL (8.5-10.5) 04/20/24 10:00 Total Bilirubin 0.8 mg/dL (0.15-1.2) 04/20/24 10:00 AST 19 U/L (0-40) 04/20/24 10:00 ALT 16 U/L (0-41) 04/20/24 10:00 Alkaline Phosphatase 115 U/L (40-130) 04/20/24 10:00 Creatine Kinase 213 U/L (39-308) 04/20/24 10:00 Total Protein 7.0 g/dL (6.6-8.7) 04/20/24 10:00 Albumin 3.9 g/dL (3.5-5.2) 04/20/24 10:00 Globulin 3.1 g/dL (1.3-4.6) 04/20/24 10:00 Urine Color Yellow (Yellow) 04/20/24 12:20 Urine Appearance Clear (CLEAR) 04/20/24 12:20 Urine pH 5 (5-7) 04/20/24 12:20 Ur Specific [place] 1.030 (1.005-1.030) 04/20/24 12:20 Urine Protein Neg (Negative) 04/20/24 12:20 Urine Glucose (UA) 4+ (Normal) H 04/20/24 12:20 Urine Ketones Negative (Negative) 04/20/24 12:20 Urine Blood Neg (Negative) 04/20/24 12:20 Urine Nitrate Negative (Negative) 04/20/24 12:20 Urine Bilirubin Neg (Negative) 04/20/24 12:20 Urine Urobilinogen Norm mg/dL (Negative) 04/20/24 12:20 Ur Leukocyte Esterase Negative (Negative) 04/20/24 12:20 Serum Ketones Negative (Negative) 04/20/24 10:00 All radiology interpretation(s) finalized by discharge Discharge Plan Discharge Patient Disposition: Home Clinical Impression: Hypoglycemia Condition: Stable Prescriptions: No Action (DME) blood sugar diagnostic Strip See Rx Instructions .Route Qty: 10 2RF Rx Instructions: As directed (DME) lancets 32 gauge misc See Rx Instructions .Route Qty: 100 0RF Rx Instructions: As directed (DME) Dexcom G6 Sensor Device See Rx Instructions .ROUTE .MEDSUPPLY Qty: 9 0RF Rx Instructions: change every 10 days (DME) Omnipod 5 G6 Intro Kit (Gen 5) Cartridge See Rx Instructions .ROUTE .MEDSUPPLY Qty: 1 0RF Rx Instructions: As directed (DME) Omnipod 5 G6 Pods (Gen 5) Cartridge See Rx Instructions .ROUTE .MEDSUPPLY Qty: 10 3RF Rx Instructions: change pod every 3 days (DME) Dexcom G6 Transmitter Device See Rx Instructions .ROUTE .MEDSUPPLY Qty: 1 1RF Rx Instructions: change every 3 months insulin aspart U-100 100 unit/mL (3 mL) insulin pen See Rx Instructions .ROUTE .COMPLEX Qty: 27 0RF Dose Instruction: inject 10 units SUBCUTANEOUSLY THREE TIMES DAILY Rx Instructions: Inject 10 units SUBCUTANEOUSLY THREE TIMES DAILY. insulin glargine [Lantus Solostar U-100 Insulin] 100 unit/mL (3 mL) insulin pen 24 unit SUBCUT DAILY Qty: 22 3RF (DME) pen needle, diabetic [BD Ultra-Fine Micro Pen Needle] 32 gauge x 1/4 needle See Rx Instructions .Route Qty: 300 3RF Rx Instructions: TID metformin 500 mg tablet 500 mg PO BID Qty: 60 0RF (DME) blood-glucose meter [Blood Glucose Monitoring] Kit See Rx Instructions .Route Qty: 1 0RF Rx Instructions: As directed (DME) Blood Glucose Test Strip See Rx Instructions .Route Qty: 50 0RF Rx Instructions: As directed (DME) lancets [Lancets, Super Thin] Misc See Rx Instructions .Route Qty: 100 0RF Rx Instructions: As directed Discharge Orders: Discharge ED (Routine); Ordered 04/20/24 Ordered By: Mustapha Mccrary Referrals: Marisol Serrato MD [Primary Care Provider] - Discharge Diet: Usual diet Discharge Activity: Resume usual activity Patient Instructions: Altered Mental Status (ED), Opioid Safety, Pain Management Activity Restrictions/Additional Instructions: Thank you for choosing [facility] for your healthcare needs today. It is very important that you follow up as instructed or that you return to the Emergency Department should you have concerns or if your condition changes or worsens in any way. You are seen today with low blood sugar. It did respond to medications given. Monitor your blood sugars closely throughout the rest of the day. Have an available shorting acting glucose, either of food or glucose tablets. Coding Level of Care Code ED Residential Roofer Helper for April Deleon
[2024-04-20 11:03] LABS: Glucose Point of Care 162 mg/dL (70-110)
[2024-04-20] MEDS: potassium chloride oral liq 20 mEq/15 mL UDC 40 MEQ PO (11:27)
[2024-04-20 11:47] LABS: Glucose Point of Care 138 mg/dL (70-110)
[2024-04-20 12:22] LABS: Glucose Point of Care 202 mg/dL (70-110)
[2024-04-20 12:30] LABS: Add Urine Microscopic? NO; Charge for UA Resulting for Rev
[2024-04-20 12:42] LABS: Glucose Point of Care 152 mg/dL (70-110)
[2024-04-20 13:06] LABS: Glucose Point of Care 178 mg/dL (70-110)
[2024-04-20 13:07] LABS: Bilirubin Urine Neg (Negative); Blood Urine Neg (Negative); Glucose Urine UA 4+ (Normal); Ketones Urine Negative (Negative); Leukocyte Esterase Urine Negative (Negative); Nitrate Urine Negative (Negative); Protein Urine Neg (Negative); Urine Appearance Clear (CLEAR); Urine Color Yellow (Yellow); Urobilinogen Urine Norm (Negative); pH Urine 5 (5-7)
[2024-04-20 13:40] LABS: Glucose Point of Care 164 mg/dL (70-110)
== END 2024-04-20 13:53 | disposition home or self-care (01) ==
PROVIDERS: Emergency Provider Family Medicine; PCP Internal Medicine
DX: E16.2 Hypoglycemia, unspecified (principal); Z79.4 Long term (current) use of insulin; Z79.84 Long term (current) use of oral hypoglycemic drugs
CPT/HCPCS: 36416; 36600; 71045; 80051; 80053; 81003; 82009; 82330; 82550; 82805; 82962; 85025; 96360; 96361; 96372; 99284; J1610; J7799

== ENCOUNTER 2025-04-15 11:50 | Emergency (ER) | payer MEDICAID, SELFPAY ==
--- NOTE | 2025-04-15 11:51 | XRR_ITS ---
PROCEDURE INFORMATION: Exam: XR Right Knee Exam date and time: 04/15/2025 12:28 PM Age: 44 years old Clinical indication: Pain; Knee; Right; Additional info: Knee pain TECHNIQUE: Imaging protocol: Radiologic exam of the right knee. Views: 3 views. COMPARISON: No relevant prior studies available. FINDINGS: Bones/joints: No acute fracture or dislocation. Joint spaces are preserved. Soft tissues: Normal. XR/XR knee RT 3V* [id number] IMPRESSION: No acute fracture or dislocation.
--- OUTSIDE RECORDS SUMMARY | 2025-04-15 11:55 | XMS_ITS | Clinical Summary ---
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 Viral hepatitis A without hepatic coma 9 Acute hepatitis 04/08/2019 Jaundice 04/08/2019 Social History Tobacco Use Types Packs/Day Years Used Date Smoking Tobacco: Never Assessed Sex and Gender Information Value Date Recorded Sex Assigned at Not on file Legal Sex Male 2:13 AM CDT Gender Identity Not on file Sexual Orientation Not on file Last Filed Vital Signs Vital Sign Reading Time Taken Comments Blood Pressure 130/84 04/10/2019 11:47 AM CDT Pulse 82 04/10/2019 11:47 AM CDT Temperature 36.2 C (97.2 F) 04/10/2019 11:47 AM CDT Respiratory Rate 18 04/10/2019 11:4 7 AM CDT Oxygen Saturation 96% 04/10/2019 11: 47 AM CDT Inhaled Oxygen Concentration - - Weight 71.6 kg (157 lb 13.6 oz) 019 11:42 AM CDT Height 172.7 cm (5' 8 ) 04/08/2019 11:4 2 AM CDT Body Mass Index 24 04/08/2019 11:42 AM CDT Plan of Treatment Health Maintenance Due Date Last Done Comments HPV VACCINES (1 - Male 3-dose series) 12/27/1995 DTAP/TDAP/TD VACCINES (1 - Tdap) 12/27/1999 HEPATITIS B VACCINES (1 of 3 - 19+ 3-dose series) 10/1999 INFLUENZA VACCINE (#1) 2025
--- OUTSIDE RECORDS SUMMARY | 2025-04-15 11:55 | XMS_ITS | Clinical Summary ---
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 Viral hepatitis A without hepatic coma 9 Acute hepatitis 04/08/2019 Jaundice 04/08/2019 Social History Tobacco Use Types Packs/Day Years Used Date Smoking Tobacco: Never Smokeless Tobacco: Never Tobacco Cessation:Counseling Given: Not Answered Alcohol Use Standard Drinks/Week Comments Never 0 (1 standard drink = 0.6 oz pur e alcohol) Sex and Gender Information Value Date Recorded Sex Assigned at Not on file 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 Gender Identity Not on file Sexual Orientation Not on file Last Filed Vital Signs Vital Sign Reading Time Taken Comments Blood Pressure 149/92 07/29/2022 12:30 PM CDT Pulse 96 07/29/2022 12:30 PM CDT Temperature 36.1 C (97 F) 07/29/2022 11:19 AM CDT Respiratory Rate 18 07/29/2022 11:19 AM CDT Oxygen Saturation 99% 07/29/2022 12:30 PM CDT Inhaled Oxygen Concentration - - Weight 73 kg (161 lb) 07/29/2022 11:11 AM CDT Height 170.2 cm (5' 7 ) 07/29/2022 11:11 AM CDT Body Mass Index 25.22 07/29/2022 11:11 AM CDT Plan of Treatment Health Maintenance Due Date Last Done Comments HPV VACCINES (1 - Male 3-dose series) 12/27/1995 DTAP/TDAP/TD VACCINES (1 - Tdap) 12/27/1999 HEPATITIS B VACCINES (1 of 3 - 19+ 3-dose series) 04/0 10/1999 INFLUENZA VACCINE (#1) 2025 Insurance [place] [facility] [place]
[2025-04-15 12:27] VITALS: BP 142/80; PULSE 103; RESP 16; TEMP 36.7; O2SAT 96; BMI 26.6
--- NOTE | 2025-04-15 13:44 | W.ED.EXTPRO ---
HPI - Extremity Problem General: Chief complaint: Extremity Injury, Lower Stated complaint: right knee pain Time Seen by Provider: 04/15/25 12:39 Source: patient Mode of arrival: ambulatory Limitations: no limitations History of Present Illness: 44-year-old male who presents to the ED for progressively worsening right knee pain, onset 1 week ago. Patient reports that he had a small superficial abscess over his right knee couple weeks ago that he drained himself at home. He states that the area is significantly better today and is not as swollen or as red as before. He reports that his pain today is on the medial side of his right knee and to the back of his knee. He states that the pain is worse when he is walking and with certain positions. Reports knee swelling Denies any recent fevers, fatigue, chest pain, or shortness of breath. No other complaints at this time. 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 MD Complaint: joint swelling and joint pain Onset (ago): day(s) Pain Consistency: constant Location: knee Quality: aching Radiation: none Exacerbating factors: range of motion and walking Associated symptoms: Reports no associated symptoms; Deny chest pain, fever(s) or short of breath Related Data Previous Rx's ?Medication ?Instructions ?Recorded blood sugar diagnostic (Blood #50 ea 09/18/22 Glucose Test strips) blood-glucose meter (Blood Glucose #1 ea 09/18/22 Monitoring kit) lancets (Lancets, Super Thin) #100 ea 09/18/22 blood sugar diagnostic #10 ea 09/22/22 lancets 32 gauge #100 ea 09/22/22 metformin 500 mg tablet 500 mg PO BID #60 tabs 05/23/23 pen needle, diabetic 32 gauge x #300 ea 09/29/2309/29 (BD Ultra-Fine Micro Pen Needle) insulin pump cart,automated,BT #10 ea 10/31/23 (Omnipod 5 G6 Pods (Gen 5) subcutaneous cartridge) insulin pump cartridge,automated #1 ea 10/31/23 dose,BT with controller subcutaneous (Omnipod 5 G6 Intro Kit (Gen 5) subcutaneous cartridge with controller) blood-glucose sensor (Dexcom G7 #3 ea 01/30/25 Sensor device) blood-glucose,tonnage compilation clerk,cont #1 ea 01/30/25 (Dexcom G7 Chief Growth Officer) insulin aspart U-100 100 unit/mL See Rx Instructions .Route 01/30/25 (3 mL) subcutaneous pen .COMPLEX #27 mL insulin glargine 100 unit/mL (3 See Rx Instructions .Route 01/30/25 mL) subcutaneous pen (Lantus .COMPLEX #22 mL Solostar U-100 Insulin) ibuprofen 800 mg tablet 800 mg PO Q8H PRN pain #20 tabs 04/15/25 methylprednisolone 4 mg tablets in See Rx Instructions PO .COMPLEX 04/15/25 a dose pack (Medrol (Piter)) #21 ea Allergies Allergy/AdvReac Type Severity Reaction Status Date / Time No Known Allergies Allergy Verified 01/29/25 14:50 Review of Systems Const: Denies: fever(s), chills or fatigue Card: Denies: chest pain Resp: Denies: dyspnea Musc: Reports: back pain, joint pain (R knee) and joint swelling (R knee); Denies: joint redness, joint warmth or limited range of motion Neuro: Denies: numbness in extremities, sensory changes or difficulty walking [facility] ED PFSH: Medical History No pertinent past medical history Surgical History No pertinent past surgical history Family History Other Hypertension Social History Smoking and tobacco/nicotine status: unknown if used tobacco/nicotine Alcohol intake: current Substance/Drug Use: current Substance/Drug use frequency: Special occassions/opportunity only Physical Exam Const: COMMON NORMALS: no acute distress, average body habitus, no limitations, healthy appearing, alert and well nourished ORIENTATION/CONSCIOUSNESS: Yes awake, Yes oriented to person, Yes oriented to place and Yes oriented to time Resp: COMMON NORMALS: normal respiratory effort and clear to auscultation bilaterally AUSCULTATION: clear to auscultation bilaterally Cardio: COMMON NORMALS: regular rate (HR 70s in room; he was mildly tachycardic as charted in triage) and regular rhythm RATE: regular rate (HR 70s in room; he was mildly tachycardic as charted in triage) RHYTHM: regular rhythm Extremity: COMMON NORMALS: full ROM, capillary refill normal, no calf tenderness and no pedal edema GENERAL: Yes normal exam except as noted RIGHT LOWER EXTREMITY: Yes knee joint (small healed superficial abscess anteriolateral R knee) Right knee: Yes inspection (anterior edema), Yes ROM (normal ROM but feels like knee is tight), Yes neurovascular exam (normal) and Yes other (no redness/warmth) Neuro: COMMON NORMALS: moves all extremities, no focal motor deficits, no sensory deficits noted and gait normal SENSORIUM/ORIENTATION: Yes alert, Yes oriented to person, Yes oriented to place and Yes oriented to time SENSORY EXAM: Yes extremities MOTOR EXAM: 5/5 motor strength present throughout Course Vital Signs: Vital signs: Vital Signs Temperature 98.0 F 04/15/25 12:27 Pulse Rate 103 H 04/15/25 12:27 Respiratory Rate 16 04/15/25 12:27 Blood Pressure 142/80 04/15/25 12:27 Pulse Oximetry 96 04/15/25 12:27 Oxygen Delivery Me thod Room Air 04/15/25 12:27 MDM - Extremity (Nontraumatic) Medical Decision Making No suspicion for any acute septic arthritis. Nothing to suggest DVT. XR of right knee obtained and unremarkable. Clinically he does have anterior swelling consistent with effusion. 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 Will OMAIRA wrap and will RX steroids/anti-inflammatories. Recommend PCP follow up if symptoms do not improve with consevative therapies. Lab Data Radiology Impressions Knee X-Ray 04/15/25 11:51 IMPRESSION: No acute fracture or dislocation. All radiology interpretation(s) finalized by discharge Discharge Plan Discharge Patient Disposition: Home Clinical Impression: Effusion of right knee Condition: Stable Prescriptions: New ibuprofen 800 mg tablet 800 mg PO Q8H PRN (Reason: pain) Qty: 20 0RF methylprednisolone [Medrol (Piter)] 4 mg tablets,dose pack See Rx Instructions .ROUTE .COMPLEX Qty: 21 0RF Rx Instructions: orally per package directions No Action (DME) blood sugar diagnostic Strip See Rx Instructions .Route Qty: 10 2RF Rx Instructions: As directed (DME) lancets 32 gauge misc See Rx Instructions .Route Qty: 100 0RF Rx Instructions: As directed (DME) Dexcom G7 Chief Growth Officer Misc See Rx Instructions .ROUTE .MEDSUPPLY Qty: 1 0RF Rx Instructions: As directed (DME) Dexcom G7 Sensor Device See Rx Instructions .ROUTE .MEDSUPPLY Qty: 3 2RF Rx Instructions: change every 10 days (DME) Omnipod 5 G6 Intro Kit (Gen 5) Cartridge See Rx Instructions .ROUTE .MEDSUPPLY Qty: 1 0RF Rx Instructions: As directed (DME) Omnipod 5 G6 Pods (Gen 5) Cartridge See Rx Instructions .ROUTE .MEDSUPPLY Qty: 10 3RF Rx Instructions: change pod every 3 days (DME) pen needle, diabetic [BD Ultra-Fine Micro Pen Needle] 32 gauge x 1/4 needle See Rx Instructions .Route Qty: 300 3RF Rx Instructions: TID insulin aspart U-100 100 unit/mL (3 mL) insulin pen See Rx Instructions .ROUTE .COMPLEX Qty: 27 0RF Dose Instruction: INJECT 10 UNITS SUBCUTANEOUSLY THREE TIMES DAILY Rx Instructions: INJECT 10 UNITS SUBCUTANEOUSLY THREE TIMES DAILY insulin glargine [Lantus Solostar U-100 Insulin] 100 unit/mL (3 mL) insulin pen See Rx Instructions .ROUTE .COMPLEX Qty: 22 3RF Dose Instruction: INJECT 24 UNITS SUBCUTANEOUSLY DAILY Rx Instructions: INJECT 24 UNITS SUBCUTANEOUSLY DAILY metformin 500 mg tablet 500 mg PO BID Qty: 60 0RF (DME) blood-glucose meter [Blood Glucose Monitoring] Kit See Rx Instructions .Route Qty: 1 0RF Rx Instructions: As directed (DME) Blood Glucose Test Strip See Rx Instructions .Route Qty: 50 0RF Rx Instructions: As directed (DME) lancets [Lancets, Super Thin] Misc See Rx Instructions .Route Qty: 100 0RF Rx Instructions: As directed Discharge Orders: Discharge ED (Routine); Ordered 04/15/25 Ordered By: Pia Muniz Referrals: Marisol Serrato MD [Primary Care Provider, Endocrinology] Patient Instructions: Swollen Knee Joint (ED), Patient Portal & [facility]ogenes Instructions Print Language: Kiswahili Coding Level of Care Code ED Saddle Mechanic for April Deleon
[2025-04-15 14:21] VITALS: BP 131/85; PULSE 72; RESP 18; O2SAT 100
--- NOTE | 2025-04-17 10:48 | PC.NURSE ---
PCP request for follow up.
== END 2025-04-15 14:23 | disposition home or self-care (01) ==
PROVIDERS: Emergency Provider Physician Assistant; PCP Internal Medicine
DX: M25.461 Effusion, right knee (principal)
CPT/HCPCS: 73562; 96372; 99284; J1885

== ENCOUNTER 2025-07-11 12:10 | Emergency (ER) | payer MEDICAID, SELFPAY ==
[2025-07-11 12:55] VITALS: BP 136/88; PULSE 99; RESP 18; TEMP 36.9; O2SAT 98
--- OUTSIDE RECORDS SUMMARY | 2025-07-11 13:03 | XMS_ITS | Clinical Summary ---
Author Organization Eduarda Mensah [facility] Address [address] [place] [address] Phone Care Team Providers Care Clerk Rating Name Role Phone Unavailable Primary Care Provider [...] Health Maintenance Due Date Last Done Comments DTAP/TDAP/TD VACCINES (1 - Tdap) 12/27/1999 HEPATITIS B VACCINES (1 of 3 - 19+ 3-dose series) 10/1999 HPV VACCINES (1 - 3-dose SCDM series) 12/27/2007 INFLUENZA VACCINE (#1) 2025
--- OUTSIDE RECORDS SUMMARY | 2025-07-11 13:03 | XMS_ITS | Clinical Summary ---
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
--- NOTE | 2025-07-11 13:24 | XR_ITS ---
WS: [id number] XR knee RT 3V* [id number] REASON FOR EXAM: red, hot, swollen knee FINDINGS: Increase in the soft tissue anterior to the patella, presumably edema. No radiopaque foreign body. No focal bony abnormality. Joint spaces of the knee are intact and well preserved. XR/XR knee RT 3V* [id number] IMPRESSION: Soft tissue swelling with no significant bone or joint abnormality.
--- NOTE | 2025-07-11 13:39 | W.ED.WOUNDLC ---
Documented by User: CHANELLE Ceron 07/11/25 14:40 HPI - Wound/Laceration General: Chief Complaint: Wound/Laceration Stated Complaint: R knee swollen and painful Hot to touch Time Seen by Provider: 07/11/25 13:13 Source: patient Mode of arrival: ambulatory Limitations: no limitations History of Present Illness: Patient is a 44-year-old male who presents emergency department complaining of right knee pain, redness, and swelling since yesterday. Notes the pain was significant last night to where he could not walk, it is much better today and he has full range of motion and is able to bear weight. 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 Also states a history of similar presentation in the past, has ameliorated spontaneously. He denies any other known trauma. He is not reporting any fever, nausea/vomiting, chills, abdominal pain, or any other signs of systemic illness. His vitals are stable at this time. Noted to be ambulatory into the emergency department. He notes that he has had fluid pulled off his knee in the past and states that overall he has had complications with his knee since then. Onset (ago): day(s) Extremity Location: Right: knee Associated symptoms: Denies chills, fever(s), nausea or vomiting Related Data Previous Rx's ?Medication ?Instructions ?Recorded blood sugar diagnostic (Blood #50 ea 09/18/22 Glucose Test strips) blood-glucose meter (Blood Glucose #1 09/18/22 Monitoring kit) lancets (Lancets, Super Thin) #100 ea 09/18/22 blood sugar diagnostic #10 ea 09/22/22 lancets 32 gauge #100 ea 09/22/22 pen needle, diabetic 32 gauge x #300 ea 09/29/23/ (BD Ultra-Fine Micro Pen Needle) insulin pump cart,automated,BT #10 ea 10/31/23 (Omnipod 5 G6 Pods (Gen 5) subcutaneous cartridge) insulin pump cartridge,automated #1 10/31/23 dose,BT with controller subcutaneous (Omnipod 5 G6 Intro Kit (Gen 5) subcutaneous cartridge with controller) blood-glucose sensor (Dexcom G7 #3 ea 01/30/25 Sensor device) blood-glucose,fish house worker,cont #1 01/30/25 (Dexcom G7 Regulatory And Compliance Technician) insulin aspart U-100 100 unit/mL See Rx Instructions .Route 01/30/25 (3 mL) subcutaneous pen .COMPLEX #27 mL insulin glargine 100 unit/mL (3 See Rx Instructions .Route 01/30/25 mL) subcutaneous pen (Lantus .COMPLEX #22 mL Solostar U-100 Insulin) methylprednisolone 4 mg tablets in See Rx Instructions PO .COMPLEX 04/15/25 a dose pack (Medrol (Piter)) #21 ea diclofenac sodium 3 % topical gel 1 applic topical BID #100 grams 05/02/25 (Solaraze) naproxen 500 mg tablet 500 mg PO BID #60 tabs 05/02/25 cephalexin 500 mg capsule 500 mg PO Q6H 10 days #40 caps 07/11/25 Allergies Allergy/AdvReac Type Severity Reaction Status Date / Time No Known Allergies Allergy Verified 05/02/25 10:53 Review of Systems General: Reports: 10 or more systems reviewed and unremarkable except in HPI and below Const: Denies: fever(s) or chills Card: Denies: chest pain Resp: Denies: dyspnea or productive cough GI: Denies: abdominal pain, nausea, vomiting or diarrhea : Denies: flank pain Musc: Reports: joint pain, joint swelling, joint redness and joint warmth; Denies: neck pain, back pain, extremity pain, extremity swelling, limited range of motion or muscle weakness Skin/Breast: Denies: rash Neuro: Denies: headache(s), numbness in extremities or weakness in extremities PFSH ED PFSH: Medical History No pertinent past medical history Surgical History No pertinent past surgical history Family History Other Hypertension Social History Smoking and tobacco/nicotine status: unknown if used tobacco/nicotine Alcohol intake: current Substance/Drug Use: current Substance/Drug use frequency: Special occassions/opportunity only Physical Exam Const: COMMON NORMALS: no acute distress, patient oriented x3, no limitations, healthy appearing, alert and well nourished OTHER: nontoxic HENMT: COMMON NORMALS: normocephalic and atraumatic HEAD & SCALP: normocephalic and atraumatic Neck/C-Spine: COMMON NORMALS: full ROM, supple and no meningeal signs Resp: COMMON NORMALS: normal respiratory effort, No use of accessory muscles and clear to auscultation bilaterally AUSCULTATION: clear to auscultation bilaterally Cardio: COMMON NORMALS: regular rate and regular rhythm RATE: regular rate RHYTHM: regular rhythm Extremity: NARRATIVE EXTREMITY EXAM: Cellulitis to right anterior knee with swelling and mild warmth appreciated. Diffuse tender to palpation. He does have full range of motion intact. Distal neurovascular exam is intact. Neuro: COMMON NORMALS: patient oriented x3, moves all extremities, no focal motor deficits and no sensory deficits noted SENSORIUM/ORIENTATION: Yes alert MENINGEAL SIGNS: Yes no meningeal signs Skin: NARRATIVE SKIN EXAM: See musculoskeletal/extremity exam Course Vital Signs: Vital signs: Vital Signs Temperature 98.4 F 07/11/25 12:55 Pulse Rate 99 07/11/25 12:55 Respiratory Rate 18 07/11/25 12:55 Blood Pressure 136/88 07/11/25 12:55 Pulse Oximetry 98 07/11/25 12:55 Oxygen Delivery Me thod Room Air 07/11/25 12:55 MDM - Wound/Laceration Medical Decision Making Patient presenting with redness, swelling, and warmth to the right knee. 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 He has full range of motion on exam, and is able to bear weight. He is also diabetic. His vitals are stable, he has been afebrile with no chills or other symptoms of systemic illness. Also nontoxic-appearing on exam. There is minimal leukocytosis with his lab work, ESR is negative, CRP slightly elevated to 55. X-ray does show soft tissue swelling, indicating that this is likely prepatellar bursitis and there is no significant bone or joint abnormality. I spoke to on-call orthopedist, Dr. Ruggiero, in regards to patient's case and that this is likely prepatellar bursitis and with him being clinically stable and no significant lab abnormalities, he can be treated with p.o. Keflex for 10 days and monitor for any worsening and come back if worse. Also due to the overlying cellulitis on exam, there is no injury point of joint aspiration that would be warranted at this time so as to avoid seeding of the joint, and patient also states that he did not want his joint aspirated being that he has had this performed in the past and he thought it made his swelling worse. I do suspect that this is prepatellar bursitis and he is stable for outpatient treatment. Did discuss strict return cautions with him. Lab Data 07/11/25 13:35 07/11/25 13:35 Radiology Impressions Knee X-Ray 07/11/25 13:24 IMPRESSION: Soft tissue swelling with no significant bone or joint abnormality. Laboratory Results WBC 11.60 10^3/uL (3.29-11.43) H 07/11/25 13:35 RBC 5.47 10^6/uL (3.85-5.65) 07/11/25 13:35 Hgb 15.10 g/dL (11.27-16.99) 07/11/25 13:35 Hct 46.0 % (37-53) 07/11/25 13:35 MCV 84.1 fl (82-101) 07/11/25 13:35 MCH 27.6 pg (27-33) 07/11/25 13:35 MCHC 32.8 g/dL (30-55) 07/11/25 13:35 RDW 12.7 % (12.1-15.1) 07/11/25 13:35 Plt Count 235 10^3/cmm (157-399) 07/11/25 13:35 MPV 9.5 fL (7.4-10.4) 07/11/25 13:35 Neut % (Auto) 75.0 % 07/11/25 13:35 Lymph % (Auto) 14.7 % 07/11/25 13:35 [place] % (Auto) 8.3 % 07/11/25 13:35 Eos % (Auto) 1.1 % 07/11/25 13:35 Baso % (Auto) 0.4 % 07/11/25 13:35 Neut # (Auto) 8.69 10^3/uL (1.8-7.7) H 07/11/25 13:35 Lymph # (Auto) 1.7 10^3/uL (0.8-4.8) 07/11/25 13:35 [place] # (Auto) 1.0 10^3/uL (0.2-0.9) H 07/11/25 13:35 Eos # (Auto) 0.1 10^3/uL (0.0-0.8) 07/11/25 13:35 Baso # (Auto) 0.1 10^3/uL (0.0-0.1) 07/11/25 13:35 Nucleated RBC % (auto) 0 % 07/11/25 13:35 Nucleated RBCs # 0.0 /100WBC 07/11/25 13:35 ESR 10 mm/hr (0-10) 07/11/25 13:35 Sodium 139 mmol/L (136-145) 07/11/25 13:35 Potassium 3.5 mmol/L (3.5-5.1) 07/11/25 13:35 Chloride 102 mmol/L (98-107) 07/11/25 13:35 Carbon Dioxide 24 mmol/L (22-29) 07/11/25 13:35 Anion Gap 16.5 (5-19) 07/11/25 13:35 BUN 15 mg/dL (6-20) 07/11/25 13:35 Creatinine 0.9 mg/dL (0.7-1.2) 07/11/25 13:35 GFR Calculation 91.7 mL/min (90-130) 07/11/25 13:35 Glucose 68 mg/dL (65-115) 07/11/25 13:35 Calculated Osmolality 287 mOsm/kg (285-295) 07/11/25 13:35 Calcium 9.2 mg/dL (8.5-10.5) 07/11/25 13:35 Total Bilirubin 1.9 mg/dL (0.15-1.2) H 07/11/25 13:35 AST 13 U/L (0-40) 07/11/25 13:35 ALT 12 U/L (0-41) 07/11/25 13:35 Alkaline Phosphatase 126 U/L (40-130) 07/11/25 13:35 C-Reactive Protein 55.1 mg/L (0.0-4.9) H 07/11/25 13:35 Total Protein 7.6 g/dL (6.6-8.7) 07/11/25 13:35 Albumin 4.1 g/dL (3.5-5.2) 07/11/25 13:35 Globulin 3.5 g/dL (1.3-4.6) 07/11/25 13:35 All radiology interpretation(s) finalized by discharge Discharge Plan Discharge Patient Disposition: Home Clinical Impression: Prepatellar bursitis of right knee Condition: Stable Prescriptions: New cephalexin 500 mg capsule 500 mg PO Q6H 10 Days Qty: 40 0RF No Action (DME) blood sugar diagnostic Strip See Rx Instructions .Route Qty: 10 2RF Rx Instructions: As directed (DME) lancets 32 gauge misc See Rx Instructions .Route Qty: 100 0RF Rx Instructions: As directed (DME) Dexcom G7 Regulatory And Compliance Technician Misc See Rx Instructions .ROUTE .MEDSUPPLY Qty: 1 0RF Rx Instructions: As directed (DME) Dexcom G7 Sensor Device See Rx Instructions .ROUTE .MEDSUPPLY Qty: 3 2RF Rx Instructions: change every 10 days (DME) Omnipod 5 G6 Intro Kit (Gen 5) Cartridge See Rx Instructions .ROUTE .MEDSUPPLY Qty: 1 0RF Rx Instructions: As directed (DME) Omnipod 5 G6 Pods (Gen 5) Cartridge See Rx Instructions .ROUTE .MEDSUPPLY Qty: 10 3RF Rx Instructions: change pod every 3 days diclofenac sodium [Solaraze] 3 % gel 1 applic topical BID Qty: 100 1RF naproxen 500 mg tablet 500 mg PO BID Qty: 60 1RF (DME) pen needle, diabetic [BD Ultra-Fine Micro Pen Needle] 32 gauge x 1/4 needle See Rx Instructions .Route Qty: 300 3RF Rx Instructions: TID insulin aspart U-100 100 unit/mL (3 mL) insulin pen See Rx Instructions .ROUTE .COMPLEX Qty: 27 0RF Dose Instruction: INJECT 10 UNITS SUBCUTANEOUSLY THREE TIMES DAILY Rx Instructions: INJECT 10 UNITS SUBCUTANEOUSLY THREE TIMES DAILY insulin glargine [Lantus Solostar U-100 Insulin] 100 unit/mL (3 mL) insulin pen See Rx Instructions .ROUTE .COMPLEX Qty: 22 3RF Dose Instruction: INJECT 24 UNITS SUBCUTANEOUSLY DAILY Rx Instructions: INJECT 24 UNITS SUBCUTANEOUSLY DAILY methylprednisolone [Medrol (Piter)] 4 mg tablets,dose pack See Rx Instructions .ROUTE .COMPLEX Qty: 21 0RF Rx Instructions: orally per package directions (DME) blood-glucose meter [Blood Glucose Monitoring] Kit See Rx Instructions .Route Qty: 1 0RF Rx Instructions: As directed (DME) Blood Glucose Test Strip See Rx Instructions .Route Qty: 50 0RF Rx Instructions: As directed (DME) lancets [Lancets, Super Thin] Misc See Rx Instructions .Route Qty: 100 0RF Rx Instructions: As directed Discharge Orders: Discharge ED (Routine); Ordered 07/11/25 Ordered By: Chan Landers Patient Instructions: Patient Portal & Diogenes Instructions Activity Restrictions/Additional Instructions: Prepatellar Bursitis Discharge Diagnosis and Treatment: You have been diagnosed with prepatellar bursitis (inflammation and infection of the fluid-filled sac in front of your kneecap). You will be taking cephalexin 500 mg by mouth four times a day for 10 days. It is important to take the medication exactly as prescribed and finish the entire course, even if you start feeling better before it is completed. Stopping early or missing doses can make the infection harder to treat and increase the risk of resistance. 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 Avoid kneeling, direct pressure, or trauma to your affected knee until fully healed. Use well-padded kneepads or other protective gear when you return to work. If possible, modify your activities to reduce stress on your knee. General Care: - Rest your knee as much as possible. - Apply ice packs for 15?20 minutes several times a day to reduce swelling. - Keep the knee elevated when sitting or lying down. - Avoid activities that worsen pain or swelling. Medication Side Effects: Common side effects of cephalexin include diarrhea, nausea, and abdominal discomfort. If you develop severe diarrhea, bloody stools, rash, or signs of an allergic reaction (such as swelling, difficulty breathing, or hives), stop the medication and seek medical attention immediately. Strict Return Precautions: Return to the emergency department or contact your healthcare provider immediately if you experience any of the following: - Fever over 100.4?F (38?C) - Increasing redness, warmth, swelling, or pain in your knee - Pus or drainage from the knee - Difficulty moving the knee or walking - Spreading redness or streaks up the leg - Severe joint pain or inability to bear weight - Signs of an allergic reaction (rash, swelling, trouble breathing) - Any new or concerning symptoms Follow-Up: Schedule a follow-up appointment as directed to ensure the infection is resolving. If symptoms are not improving after 3?5 days of antibiotics, or if you have any concerns, contact your provider promptly. Prevention: To help prevent future episodes, always use kneepads or cushioning when working on your knees and avoid repetitive trauma. 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 Assembler for Chg Fwd Documented by User: Mustapha Mccrary DO 07/11/25 15:27 HPI - Wound/Laceration General: Chief Complaint: Wound/Laceration Stated Complaint: R knee swollen and painful Hot to touch Time Seen by Provider: 07/11/25 13:13 Related Data Previous Rx's ?Medication ?Instructions ?Recorded blood sugar diagnostic (Blood #50 ea 09/18/22 Glucose Test strips) blood-glucose meter (Blood Glucose #1 09/18/22 Monitoring kit) lancets (Lancets, Super Thin) #100 ea 09/18/22 blood sugar diagnostic #10 ea 09/22/22 lancets 32 gauge #100 ea 09/22/22 pen needle, diabetic 32 gauge x #300 ea 09/29/23 1 (BD Ultra-Fine Micro Pen Needle) insulin pump cart,automated,BT #10 ea 10/31/23 (Omnipod 5 G6 Pods (Gen 5) subcutaneous cartridge) insulin pump cartridge,automated #1 ea 10/31/23 dose,BT with controller subcutaneous (Omnipod 5 G6 Intro Kit (Gen 5) subcutaneous cartridge with controller) blood-glucose sensor (Dexcom G7 #3 ea 01/30/25 Sensor device) blood-glucose,fish house worker,cont #1 ea 01/30/25 (Dexcom G7 Regulatory And Compliance Technician) insulin aspart U-100 100 unit/mL See Rx Instructions .Route 01/30/25 (3 mL) subcutaneous pen .COMPLEX #27 mL insulin glargine 100 unit/mL (3 See Rx Instructions .Route 01/30/25 mL) subcutaneous pen (Lantus .COMPLEX #22 mL Solostar U-100 Insulin) methylprednisolone 4 mg tablets in See Rx Instructions PO .COMPLEX 04/15/25 a dose pack (Medrol (Piter)) #21 ea diclofenac sodium 3 % topical gel 1 applic topical BID #100 grams 05/02/25 (Solaraze) naproxen 500 mg tablet 500 mg PO BID #60 tabs 05/02/25 cephalexin 500 mg capsule 500 mg PO Q6H 10 days #40 caps 07/11/25 Allergies Allergy/AdvReac Type Severity Reaction Status Date / Time No Known Allergies Allergy Verified 05/02/25 10:53 [facility] ED PFSH: Medical History No pertinent past medical history Surgical History No pertinent past surgical history Family History Other Hypertension Social History Smoking and tobacco/nicotine status: unknown if used tobacco/nicotine Alcohol intake: current Substance/Drug Use: current Substance/Drug use frequency: Special occassions/opportunity only Course Vital Signs: Vital signs: Vital Signs Temperature 98.4 F 07/11/25 12:55 Pulse Rate 99 07/11/25 12:55 Respiratory Rate 18 07/11/25 12:55 Blood Pressure 136/88 07/11/25 12:55 Pulse Oximetry 98 07/11/25 12:55 Oxygen Delivery Me thod Room Air 07/11/25 12:55 MDM - Wound/Laceration Medical Decision Making Patient presenting with redness, swelling, and warmth to the right knee. 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 He has full range of motion on exam, and is able to bear weight. He is also diabetic. His vitals are stable, he has been afebrile with no chills or other symptoms of systemic illness. Also nontoxic-appearing on exam. There is minimal leukocytosis with his lab work, ESR is negative, CRP slightly elevated to 55. X-ray does show soft tissue swelling, indicating that this is likely prepatellar bursitis and there is no significant bone or joint abnormality. I spoke to on-call orthopedist, Dr. Ruggiero, in regards to patient's case and that this is likely prepatellar bursitis and with him being clinically stable and no significant lab abnormalities, he can be treated with p.o. Keflex for 10 days and monitor for any worsening and come back if worse. Also due to the overlying cellulitis on exam, there is no injury point of joint aspiration that would be warranted at this time so as to avoid seeding of the joint, and patient also states that he did not want his joint aspirated being that he has had this performed in the past and he thought it made his swelling worse. I do suspect that this is prepatellar bursitis and he is stable for outpatient treatment. Did discuss strict return cautions with him. Chart reviewed and patient discussed with midlevel. Agree with assessment and plan. Lab Data 07/11/25 13:35 07/11/25 13:35 Radiology Impressions Knee X-Ray 07/11/25 13:24 IMPRESSION: Soft tissue swelling with no significant bone or joint abnormality. Laboratory Results WBC 11.60 10^3/uL (3.29-11.43) H 07/11/25 13:35 RBC 5.47 10^6/uL (3.85-5.65) 07/11/25 13:35 Hgb 15.10 g/dL (11.27-16.99) 07/11/25 13:35 Hct 46.0 % (37-53) 07/11/25 13:35 MCV 84.1 fl (82-101) 07/11/25 13:35 MCH 27.6 pg (27-33) 07/11/25 13:35 MCHC 32.8 g/dL (30-55) 07/11/25 13:35 RDW 12.7 % (12.1-15.1) 07/11/25 13:35 Plt Count 235 10^3/cmm (157-399) 07/11/25 13:35 MPV 9.5 fL (7.4-10.4) 07/11/25 13:35 Neut % (Auto) 75.0 % 07/11/25 13:35 Lymph % (Auto) 14.7 % 07/11/25 13:35 [place] % (Auto) 8.3 % 07/11/25 13:35 Eos % (Auto) 1.1 % 07/11/25 13:35 Baso % (Auto) 0.4 % 07/11/25 13:35 Neut # (Auto) 8.69 10^3/uL (1.8-7.7) H 07/11/25 13:35 Lymph # (Auto) 1.7 10^3/uL (0.8-4.8) 07/11/25 13:35 [place] # (Auto) 1.0 10^3/uL (0.2-0.9) H 07/11/25 13:35 Eos # (Auto) 0.1 10^3/uL (0.0-0.8) 07/11/25 13:35 Baso # (Auto) 0.1 10^3/uL (0.0-0.1) 07/11/25 13:35 Nucleated RBC % (auto) 0 % 07/11/25 13:35 Nucleated RBCs # 0.0 /100WBC 07/11/25 13:35 ESR 10 mm/hr (0-10) 07/11/25 13:35 Sodium 139 mmol/L (136-145) 07/11/25 13:35 Potassium 3.5 mmol/L (3.5-5.1) 07/11/25 13:35 Chloride 102 mmol/L (98-107) 07/11/25 13:35 Carbon Dioxide 24 mmol/L (22-29) 07/11/25 13:35 Anion Gap 16.5 (5-19) 07/11/25 13:35 BUN 15 mg/dL (6-20) 07/11/25 13:35 Creatinine 0.9 mg/dL (0.7-1.2) 07/11/25 13:35 GFR Calculation 91.7 mL/min (90-130) 07/11/25 13:35 Glucose 68 mg/dL (65-115) 07/11/25 13:35 Calculated Osmolality 287 mOsm/kg (285-295) 07/11/25 13:35 Calcium 9.2 mg/dL (8.5-10.5) 07/11/25 13:35 Total Bilirubin 1.9 mg/dL (0.15-1.2) H 07/11/25 13:35 AST 13 U/L (0-40) 07/11/25 13:35 ALT 12 U/L (0-41) 07/11/25 13:35 Alkaline Phosphatase 126 U/L (40-130) 07/11/25 13:35 C-Reactive Protein 55.1 mg/L (0.0-4.9) H 07/11/25 13:35 Total Protein 7.6 g/dL (6.6-8.7) 07/11/25 13:35 Albumin 4.1 g/dL (3.5-5.2) 07/11/25 13:35 Globulin 3.5 g/dL (1.3-4.6) 07/11/25 13:35 Discharge Plan Discharge Patient Disposition: Home Clinical Impression: Prepatellar bursitis of right knee Condition: Stable Prescriptions: New cephalexin 500 mg capsule 500 mg PO Q6H 10 Days Qty: 40 0RF No Action (DME) blood sugar diagnostic Strip See Rx Instructions .Route Qty: 10 2RF Rx Instructions: As directed (DME) lancets 32 gauge misc See Rx Instructions .Route Qty: 100 0RF Rx Instructions: As directed (DME) Dexcom G7 Regulatory And Compliance Technician Misc See Rx Instructions .ROUTE .MEDSUPPLY Qty: 1 0RF Rx Instructions: As directed (DME) Dexcom G7 Sensor Device See Rx Instructions .ROUTE .MEDSUPPLY Qty: 3 2RF Rx Instructions: change every 10 days (DME) Omnipod 5 G6 Intro Kit (Gen 5) Cartridge See Rx Instructions .ROUTE .MEDSUPPLY Qty: 1 0RF Rx Instructions: As directed (DME) Omnipod 5 G6 Pods (Gen 5) Cartridge See Rx Instructions .ROUTE .MEDSUPPLY Qty: 10 3RF Rx Instructions: change pod every 3 days diclofenac sodium [Solaraze] 3 % gel 1 applic topical BID Qty: 100 1RF naproxen 500 mg tablet 500 mg PO BID Qty: 60 1RF (DME) pen needle, diabetic [BD Ultra-Fine Micro Pen Needle] 32 gauge x 1/4 needle See Rx Instructions .Route Qty: 300 3RF Rx Instructions: TID insulin aspart U-100 100 unit/mL (3 mL) insulin pen See Rx Instructions .ROUTE .COMPLEX Qty: 27 0RF Dose Instruction: INJECT 10 UNITS SUBCUTANEOUSLY THREE TIMES DAILY Rx Instructions: INJECT 10 UNITS SUBCUTANEOUSLY THREE TIMES DAILY insulin glargine [Lantus Solostar U-100 Insulin] 100 unit/mL (3 mL) insulin pen See Rx Instructions .ROUTE .COMPLEX Qty: 22 3RF Dose Instruction: INJECT 24 UNITS SUBCUTANEOUSLY DAILY Rx Instructions: INJECT 24 UNITS SUBCUTANEOUSLY DAILY methylprednisolone [Medrol (Piter)] 4 mg tablets,dose pack See Rx Instructions .ROUTE .COMPLEX Qty: 21 0RF Rx Instructions: orally per package directions (DME) blood-glucose meter [Blood Glucose Monitoring] Kit See Rx Instructions .Route Qty: 1 0RF Rx Instructions: As directed (DME) Blood Glucose Test Strip See Rx Instructions .Route Qty: 50 0RF Rx Instructions: As directed (DME) lancets [Lancets, Super Thin] Misc See Rx Instructions .Route Qty: 100 0RF Rx Instructions: As directed Discharge Orders: Discharge ED (Routine); Ordered 07/11/25 Ordered By: Chan Landers Patient Instructions: Patient Portal & Diogenes Instructions Activity Restrictions/Additional Instructions: Prepatellar Bursitis Discharge Diagnosis and Treatment: You have been diagnosed with prepatellar bursitis (inflammation and infection of the fluid-filled sac in front of your kneecap). You will be taking cephalexin 500 mg by mouth four times a day for 10 days. It is important to take the medication exactly as prescribed and finish the entire course, even if you start feeling better before it is completed. Stopping early or missing doses can make the infection harder to treat and increase the risk of resistance. 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 Avoid kneeling, direct pressure, or trauma to your affected knee until fully healed. Use well-padded kneepads or other protective gear when you return to work. If possible, modify your activities to reduce stress on your knee. General Care: - Rest your knee as much as possible. - Apply ice packs for 15?20 minutes several times a day to reduce swelling. - Keep the knee elevated when sitting or lying down. - Avoid activities that worsen pain or swelling. Medication Side Effects: Common side effects of cephalexin include diarrhea, nausea, and abdominal discomfort. If you develop severe diarrhea, bloody stools, rash, or signs of an allergic reaction (such as swelling, difficulty breathing, or hives), stop the medication and seek medical attention immediately. Strict Return Precautions: Return to the emergency department or contact your healthcare provider immediately if you experience any of the following: - Fever over 100.4?F (38?C) - Increasing redness, warmth, swelling, or pain in your knee - Pus or drainage from the knee - Difficulty moving the knee or walking - Spreading redness or streaks up the leg - Severe joint pain or inability to bear weight - Signs of an allergic reaction (rash, swelling, trouble breathing) - Any new or concerning symptoms Follow-Up: Schedule a follow-up appointment as directed to ensure the infection is resolving. If symptoms are not improving after 3?5 days of antibiotics, or if you have any concerns, contact your provider promptly. Prevention: To help prevent future episodes, always use kneepads or cushioning when working on your knees and avoid repetitive trauma. 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
[2025-07-11 13:42] LABS: Hematocrit 46.0 % (37-53); Hemoglobin 15.10 g/dL (11.27-16.99); Mean Corpuscular HGB Conc 32.8 g/dL (30-55); Mean Corpuscular Hemoglobin 27.6 pg (27-33); Mean Corpuscular Volume 84.1 fl (82-101); Nucleated Red Blood Cells % 0 %; Platelet Count 235 10^3/cmm (157-399); Red Blood Count 5.47 10^6/uL (3.85-5.65); White Blood Count 11.60 10^3/uL (3.29-11.43)
[2025-07-11 14:05] LABS: Alanine Aminotransferase 12 U/L (0-41); Albumin Level 4.1 g/dL (3.5-5.2); Alkaline Phosphatase 126 U/L (40-130); Anion Gap 16.5 (5-19); Aspartate Amino Transferase 13 U/L (0-40); Blood Urea Nitrogen 15 mg/dL (6-20); Calcium 9.2 mg/dL (8.5-10.5); Carbon Dioxide 24 mmol/L (22-29); Chloride 102 mmol/L (98-107); Creatinine Clr Calc Pharmacy 103.1070; Globulin 3.5 g/dL (1.3-4.6); Glucose 68 mg/dL (65-115); Osmolality Calculated 287 mOsm/kg (285-295); Potassium 3.5 mmol/L (3.5-5.1); Sodium 139 mmol/L (136-145); Total Protein 7.6 g/dL (6.6-8.7)
== END 2025-07-11 15:09 | disposition home or self-care (01) ==
PROVIDERS: Emergency Provider Physician Assistant
DX: M70.41 Prepatellar bursitis, right knee (principal); Z79.4 Long term (current) use of insulin
CPT/HCPCS: 36415; 73562; 80053; 85025; 85651; 86140; 99284